=== PATIENT | female | born 1955 | race Caucasian/White ===

== ENCOUNTER → 2018-01-21 12:36 | Outpatient (CLI) | payer SELFPAY | PROVIDERS: PCP Family Medicine; Visit Provider Family Medicine | DX: R73.9 Hyperglycemia, unspecified (principal) | CPT/HCPCS: 36415; 80048; 80061; 83036; 84443 ==

== ENCOUNTER 2018-09-03 15:40 | Emergency (ER) | payer SELFPAY ==
[2018-09-03 16:00] VITALS: BP 124/67; PULSE 96; RESP 20; TEMP 36.6; O2SAT 96; BMI 42.0
--- NOTE | 2018-09-03 16:09 | HMH.EDUTC ---
[facility] – [place], [place] Disposition Clinical Impression: Sinusitis Qualifiers: Sinusitis location: unspecified location Chronicity: unspecified Qualified Code(s): J32.9 - Chronic sinusitis, unspecified Disposition: Home, Self-Care Condition on Discharge: Good Instructions: Sinusitis, Sinus Headache, DI for Sinusitis Additional Instructions: Start antibiotic. Sinus infections may take 2-3 days to notice much improvement so be sure to use conservative measures as discussed for symptoms Flonase 2 spray in each nostril daily to help with nasal congestion, sinus an ear pressure/inflammation Lots of Fluids Sleep elevated Humidifer/vaporizer Augmentin can cause GI effects. Probiotics may help to prevent these symptoms Follow up with family doctor if no improvement or any worsening of symptoms Straight to ER if any life threatening symptoms Prescriptions: Amoxicillin/Potassium Clav [Augmentin 875-125 Tablet] 1 tab PO Q12H 7 Days #14 tab Fluticasone Propionate [Flonase 50mcg nasal spray 16gm] 2 spr NS DAILY #1 bottle Benzonatate [Tessalon Perle 100mg Cap] 100 mg PO TID PRN #30 cap PRN Reason: Cough Referrals: Cecil Temple MD [Primary Care Provider] - As needed Time of Disposition: 16:16 Medical Decision Making - Ceasar Inquiry Pt receiving controlled substance: No Ceasar was queried for this patient: No Vital Signs: 09/03/18 16:00 Temperature 97.8 F Temperature Source Oral Pulse Rate [Right Brachial] 96 H Respiratory Rate 20 Blood Pressure [Right Arm] 124/67 Blood Pressure Mean [Right Arm] 86 Blood Pressure Source [Right Arm] Automatic Cuff Blood Pressure Position [Right Arm] Sitting 02 Sat by Pulse Oximetry 96 Oxygen Delivery Method Room Air [facility] – [place], [place] HPI - General Stated complaint: cough,ears Time Seen by Provider: 09/03/18 16:09 Mode of Arrival: Family Vehicle Source of Information: Patient Limitations: No Limitations Description of Symptoms (Recalled from Triage Doc. by RN): c/o cough x 2 weeks and hearing problems HEENT Symptoms (Recalled from RN notes): Yes Resp Symptoms (Recalled from RN notes): Yes Skin Symptoms (Recalled from RN notes): No MS Symptoms (Recalled from RN notes): No Functional Status (Recalled from RN notes): n/a - History of Present Illness Provider Complaint: Patient state that she has been having sinus pain and pressure for almost 2 weeks and drainage went from clear to yellowish green State that she has also been having pressure like feeling in her ears, sore throat and cough States that she feels like she is having some drainage in the back of her throat that is worse when she lays down - Related Data Home Medications Medication Instructions Recorded Confirmed Levothyroxine Sodium 200 mcg PO DAILY 09/03/18 09/03/18 [Levothyroxine 200mcg (0.2mg) Tab] Simvastatin 40 mg PO DAILY 09/03/18 09/03/18 Previous Rx's Medication Instructions Recorded Amoxicillin/Potassium Clav 1 tab PO Q12H 7 Days #14 tab 09/03/18 [Augmentin 875-125 Tablet] Benzonatate [Tessalon Perle 100mg 100 mg PO TID PRN #30 cap 09/03/18 Cap] Fluticasone Propionate [Flonase 2 spr NS DAILY #1 bottle 09/03/18 50mcg nasal spray 16gm] Allergies Allergy/AdvReac Type Severity Reaction Status Date / Time No Known Allergies Allergy Verified 09/03/18 16:04 - Worker's Comp Is this a Worker's Comp case?: No [facility] History - Hepatitis A Screen Drug use history?: No High risk sexual behaviors?: No History of sexually transmitted infection?: No Currently employed?: No Childcare worker?: No Do you have indoor plumbing?: Yes Do you have electricity?: Yes Attestation statement:: This patient has been screened for Hepatitis A risk factors. I have reviewed the patient's past medical history: Yes Medical History: Reports:: Anxiety, Depression, Diabetes Mellitus Type 2, Hyperlipidemia, Hypertension Laterality Cases: Bilateral: Tonsillectomy - Social History Alcohol Intake: never Occupational Status:
--- NOTE | 2018-09-03 16:12 | ED_ITS ---
[facility] [place] Impression: Sinusitis Qualifiers: Sinusitis location: unspecified location Chronicity: unspecified Qualified Code(s): J32.9 - Chronic sinusitis, unspecified Disposition: Home, Self-Care Condition on Discharge: Good Instructions: Sinusitis, Sinus Headache, DI for Sinusitis Additional Instructions: Start antibiotic. Sinus infections may take 2-3 days to notice much improvement so be sure to use conservative measures as discussed for symptoms Flonase 2 spray in each nostril daily to help with nasal congestion, sinus an ear pressure/inflammation Lots of Fluids Sleep elevated Humidifer/vaporizer Augmentin can cause GI effects. Probiotics may help to prevent these symptoms Follow up with family doctor if no improvement or any worsening of symptoms Straight to ER if any life threatening symptoms Prescriptions: Amoxicillin/Potassium Clav [Augmentin 875-125 Tablet] 1 tab PO Q12H 7 Days #14 tab Fluticasone Propionate [Flonase 50mcg nasal spray 16gm] 2 spr NS DAILY #1 bottle Benzonatate [Tessalon Perle 100mg Cap] 100 mg PO TID PRN #30 cap PRN Reason: Cough Referrals: Cecil Temple MD [Primary Care Provider] - As needed Time of Disposition: 16:16 Medical Decision Making - Ceasar Inquiry Pt receiving controlled substance: No Ceasar was queried for this patient: No Vital Signs: 09/03/18 16:00 Temperature 97.8 F Temperature Source Oral Pulse Rate [Right Brachial] 96 H Respiratory Rate 20 Blood Pressure [Right Arm] 124/67 Blood Pressure Mean [Right Arm] 86 Blood Pressure Source [Right Arm] Automatic Cuff Blood Pressure Position [Right Arm] Sitting 02 Sat by Pulse Oximetry 96 Oxygen Delivery Method Room Air [facility] [place] - General Stated complaint: cough,ears Time Seen by Provider: 09/03/18 16:09 Mode of Arrival: Family Vehicle Source of Information: Patient Limitations: No Limitations Description of Symptoms (Recalled from Triage Doc. by RN): c/o cough x 2 weeks and hearing problems HEENT Symptoms (Recalled from RN notes): Yes Resp Symptoms (Recalled from RN notes): Yes Skin Symptoms (Recalled from RN notes): No MS Symptoms (Recalled from RN notes): No Functional Status (Recalled from RN notes): n/a - History of Present Illness Provider Complaint: Patient state that she has been having sinus pain and pressure for almost 2 weeks and drainage went from clear to yellowish green State that she has also been having pressure like feeling in her ears, sore throat and cough States that she feels like she is having some drainage in the back of her throat that is worse when she lays down - Related Data Home Medications Medication Instructions Recorded Confirmed Levothyroxine Sodium 200 mcg PO DAILY 09/03/18 09/03/18 [Levothyroxine 200mcg (0.2mg) Tab] Simvastatin 40 mg PO DAILY 09/03/18 09/03/18 Previous Rx's Medication Instructions Recorded Amoxicillin/Potassium Clav 1 tab PO Q12H 7 Days #14 tab 09/03/18 [Augmentin 875-125 Tablet] Benzonatate [Tessalon Perle 100mg 100 mg PO TID PRN #30 cap 09/03/18 Cap] Fluticasone Propionate [Flonase 2 spr NS DAILY #1 bottle 09/03/18 50mcg nasal spray 16gm] Allergies Allergy/AdvReac Type Severity Reaction St
[2018-09-03 16:17] VITALS: BP 124/67; PULSE 96; RESP 20; TEMP 36.6; O2SAT 96
== END 2018-09-03 16:19 | disposition home or self-care (01) ==
PROVIDERS: Emergency Provider Nurse Practitioner; PCP Family Medicine
DX: J32.9 Chronic sinusitis, unspecified (principal)
CPT/HCPCS: 96372; 99201

== ENCOUNTER → 2019-07-25 09:08 | Outpatient (CLI) | payer SELFPAY ==
--- NOTE | 2019-07-25 | CA_ITS ---
APPROVED REPORT Exam: Exercise Treadmill Technologist: Ghada Valle, Ht: 5 ft 2 in Wt: 224 lbs BSA: 2.01 m2 HR: 73 bpm BP: 114/55 mmHg Rhythm: NSR Indications: Chest pain Medical History Medical History: Fatigue, Hyperlipidemia, HTN Medications: Lisinopril,Lasix,Famotidine,Buspiprone,Fluoxetine Allergies: No known drug allergies Cardiac Risk Factors: HTN, FHX of CAD Pretest Chest Pain Characteristics: Typical angina Stress Test Details Test: [place] HR Resting HR: 79 bpm Max Heart Rate (APMHR): 158 bpm Max HR Achieved: 141 bpm Target HR (85% APMHR): 134 bpm % of APMHR: 89 Recovery HR: 89 bpm BP Resting BP: 114/55 mmHg Max BP: 205/70 mmHg Recovery BP: 112.0/42.0 mmHg ECG Resting EC Stress EC Recovery EC Clinical Reason for Termination: Target HR Achieved Stress Symptoms: Chest pain Exercise duration: 04:56 min Highest Stage Achieved: Exercise capacity: 7.0 METs Stress ECG Conclusion Max HR - 141:%of PM - 89%;Max B/P - 205/70; METS - 7.0: test stopped due to SOA and Fatigue. Symptoms - Sharp chest pain during exercise. Arrhythmias - rare PAC ST-T changes - 1mm horizontal and slight upsloping ST depression inferiorly and laterally. Conclusion - Borderline positive ECG changes for ischemia and Chest Pain with exercise - GXT only - no imaging. Test Summary REST . . . . . . . Resting REST . . . . . . . Standing REST 06:44 0.0 0.0 79 . 114/ 55 . . Stage 1 01:00 10.0 1.7 94 . . . . Stage 1 02:00 10.0 1.7 109 . . . . Stage 1 03:00 10.0 1.7 120 . 164/ 64 . . Stage 2 . . . . . . . Chest pain Stage 2 01:00 12.0 2.5 132 . . . . Stage 2 01:56 12.0 2.5 140 . . . Stop exercise at 04:56 RECOVERY 01:00 0.0 0.0 130 . 205/ 70 . . RECOVERY 02:00 0.0 0.0 115 . 205/ 70 . . RECOVERY 03:00 0.0 0.0 102 . 205/ 70 . . RECOVERY 04:00 0.0 0.0 96 . 175/ 53 . . RECOVERY 05:00 0.0 0.0 93 . 145/ 49 . . RECOVERY 06:00 0.0 0.0 90 . 145/ 49 . . RECOVERY 07:00 0.0 0.0 89 . 145/ 49 . . RECOVERY 07:34 0.0 0.0 89 . 145/ 49 . . Electronically signed by : Chito Hebert, 07/27/2019 07:40:40
== END ==
PROVIDERS: PCP Family Medicine; Visit Provider Family Medicine
DX: R07.9 Chest pain, unspecified (principal)
CPT/HCPCS: 93017

== ENCOUNTER → 2019-11-10 11:50 | Outpatient (CLI) | payer MEDICAID, SELFPAY ==
--- NOTE | 2019-11-10 | CA_ITS ---
APPROVED REPORT Exam: Pharmacologic Technologist: Amira Akers, Ht: 5 ft 1 in Wt: 216 lbs BSA: 1.95 m2 HR: 54 bpm BP: 134/52 mmHg Rhythm: SINUS BRADYCARDIA Medical History Medical History: HTN, Hyperlipidemia, Diabetic ??? Noninsulin Medications: Metoprolol,,,,, Naproxen,,,,, Fluoxetine,,,,, SimvastaIN,,,,, PEPcid,,,,, BusproNE,,,,, Cardiac Risk Factors: HTN, Hyperlipidemia, Diabetes (non-insulin), FHX of CAD Stress Test Details Test: LEXISCAN HR Resting HR: 55 bpm Max Heart Rate (APMHR): 158 bpm Max HR Achieved: 82 bpm Target HR (85% APMHR): 134 bpm % of APMHR: 51 Recovery HR: 68 bpm BP Resting BP: 134.0/52.0 mmHg Max BP: 167.0/60.0 mmHg Recovery BP: 167.0/60.0 mmHg ECG Resting ECG: SINUS BRADYCARDIA Clinical Exercise duration: 04:01 min Highest Stage Achieved: Exercise capacity: 1.0 METs Stress ECG Conclusion LEXISCAN PORTION COMPLETED. PT C/O NAUSEA/VOMITING DURING PEAK INFUSION. NO CHEST PAIN OR SOA. NAUSEA AND VOMITING DURING PEAK INFUSION. OCCASIONAL PAC. LESS THAN 1.5MM ST DEPRESSION. IMAGES TO FOLLOW Test Summary REST . . . . . . . Sitting REST 01:39 . . 55 . 134/ 52 . . Stage 1 . . . . . . . Myoview Injected Stage 1 01:00 . . 80 . . . . Stage 2 01:00 . . 79 . 120/ 51 . . Stage 3 01:00 . . 76 . 140/ 66 . . Stage 4 01:00 . . 76 . 144/ 62 . . Stage 4 01:01 . . 76 . 144/ 62 . Stop exercise at 04:01 RECOVERY 01:00 . . 78 . . . . RECOVERY 02:00 . . 70 . . . . RECOVERY 03:00 . . 67 . 167/ 60 . . RECOVERY 04:00 . . 66 . 140/ 96 . . RECOVERY 05:00 . . 70 . 148/ 74 . . RECOVERY 05:09 . . 68 . 148/ 74 . . Electronically signed by : Miki Quigley, 11/20/2019 20:01:25
--- NOTE | 2019-11-10 11:50 | NM_ITS ---
APPROVED REPORT Exam: Nuclear Stress Test Indication: Chest pain, SOB, Abnormal EKG, Fatigue, HTN, DM, High cholesterol, Family history Patient Location: Outpatient Stress Tech: Nola Akers CT Tech:Angela Dodson, ARRT, RT (R)(N) Ht: 5 ft 1 in Wt: 216 lbs Bra Size: D HR: 54 bpm BP: 134/52 mmHg BSA: 1.95 m2 BMI: 40.8 History: Chest pain, SOB, Abnormal EKG, Fatigue, HTN, DM, High cholesterol, Family history Procedure: Patient received a 0.4 mg of intravenous Lexiscan, resting heart rate 54 bpm, resting blood pressure 134/52 mmHg, with Lexiscan maximum heart rate achived was 79 bpm which is 85 % of the maximum predicted heart rate and blood pressure was 120/51 mmHg. With Lexiscan, patient denied any complaint of chest pain. Cardiac Stress and Resting SPECT Images: Cardiac Stress and Resting SPECT images were obtained using technetium 99m Myoview 32.9 mCi stress and 10.53 mCi at rest. Ejection fraction is normal at 57% There is reversible defect within the inferior wall consistent with an area of ischemia. Small fixed defect within the apex laterally with a small area of reversibility in the lateral wall inferiorly. Conclusion: Abnormal exam suggesting ischemic changes with normal ejection fraction Electronically signed by : Spencer Munoz MD 11/13/2019 17:42:17
--- NOTE | 2019-11-10 12:56 | HMH.ITSHM ---
Current Home Medications as stated by this patient Ghada [place] or public relations representative. []ENTHYROX FLUOXETINE SIMVASTATIN NAPROXEN PEPCID BUSPIRONE METOPROLOL
== END ==
PROVIDERS: PCP Family Medicine; Visit Provider Urology
DX: I20.9 Angina pectoris, unspecified (principal); R06.00 Dyspnea, unspecified
CPT/HCPCS: 78452; 93017; 93306; A9502; J2785

== ENCOUNTER 2019-11-23 09:11 | Day surgery (SDC) | payer MEDICAID, SELFPAY ==
[2019-11-23] VITALS (12 sets, daily range): BP systolic 117–138; BP diastolic 48–68; PULSE 53–61; RESP 16–20; TEMP 36.8; O2SAT 94–98; BMI 40.0
[2019-11-23 09:42] LABS: Basophils # 0.1 K/mm3 (0-0.2); Basophils % 1.1 % (0.1-2.0); Eosinophils % 0.3 % (0.1-12.0); Hemoglobin 13.7 g/dL (12.2-16.2); Lymphocytes # 1.6 K/mm3 (0.7-4.5); Lymphocytes % 30.2 % (10-50); Mean Corpuscular HGB Conc 33.4 g/dL (31.8-35.4); Mean Corpuscular Hemoglobin 29.2 pg (27.0-31.2); Mean Corpuscular Volume 87.3 fl (81-99); Mean Platelet Volume 7.3 fl (7.4-10.4); Monocytes # 0.5 K/mm3 (0.1-1.0); Monocytes % 8.6 % (1.7-9.3); Neutrophils # 3.2 K/mm3 (1.8-7.8); Neutrophils % 59.8 % (37.0-80.0); Platelet Count 256 K/mm3 (142-424); Red Cell Distribution Width 12.7 % (11.5-17.5); White Blood Count 5.4 K/mm3 (4.8-10.8)
[2019-11-23 09:48] LABS: Chloride 105 mmol/L (98-107); Sodium 140 mmol/L (136-145)
[2019-11-23 09:49] LABS: Potassium 4.3 mmoL/L (3.5-5.1)
[2019-11-23 09:52] LABS: Anion Gap 8.3 mEq/L (5-15); Blood Urea Nitrogen 17 mg/dl (7-17); Calcium 9.5 mg/dl (8.4-10.2); Carbon Dioxide 31 mmol/L (22.0-30.0); Creatinine Clearance Estimated 91 mL/min (50-200); Estimated Glomerular Filt Rate 101 ml/min (>60); GFR (African American) 123 ML/MIN (>60); Glucose 106 mg/dl (74-100)
--- NOTE | 2019-11-23 10:45 | IR_ITS ---
APPROVED REPORT Patient Location: Outpatient Director Of Securities And Real Estate: GEOFFREY Dela Cruz RT (R) PROCEDURES Left heart catheterization Left ventriculogram Selective coronary angiogram INDICATION High risk abnormal Myoview, Angina pectoris Informed consent was obtained prior to the procedure. COMPLICATIONS None Estimated Blood Loss: less than 10ml TECHNIQUE One percent lidocaine used to anesthetize the right anterior aspect of the wrist. The right radial artery was accessed via the Seldinger technique. A 6 Gambian sheath was placed in the right radial artery. 2.5 mg of verapamil, 800 mcg of nitroglycerin, 1mg Lidocaine and 5000 U Heparin were given through the arterial sheath. An advantage wire was used to traverse the tortuosity in the radial and brachial artery. A 6 Gambian Papa catheter was used to perform left heart catheterization left ventriculogram and selective coronary angiogram. A 4 Gambian JL 3.5 catheter was readvanced to look at the left main artery better however there was difficulty in cannulating it and with repeat angiography and reviewing the films again it was very clear that distal left main stenosis was severe therefore further images were aborted and the apparatus was removed and the patient was transferred to the postop holding her stable condition. There was severe dampening of the left main pressure upon engagement with 6 Gambian catheter ANGIOGRAPHIC RESULTS The left main artery Has distal greater than 50% stenosis The left anterior descending artery Ramus intermedius originates from the left main artery and has an ostial 90% stenosis The circumflex artery Is a nondominant yet still large vessel with proximal tubular 30 to 40% stenosis The right coronary artery Is a dominant vessel and has an ostial greater than 50% stenosis followed by a proximal concentric 70 to 80% stenosis followed by mid vessel long 60 to 70% stenosis. A large posterior descending artery has an ostial 80 to 90% stenosis The URIBE ventriculogram reveals Normal 65% The left ventricular end-diastolic pressure 10 mmHg IMPRESSION Severe three-vessel coronary artery disease as described above most notably with severe distal left main disease Normal ejection fraction Normal left ventricular end-diastolic pressure PLAN 1. Patient will be referred to [facility] for surgical revascularization 2. LDL less than 55 to be achieved with high intensity statin 3. Daily aspirin 81 mg Electronically signed by : Christo Layne, 11/23/2019 10:55:13
== END 2019-11-23 14:00 | disposition home or self-care (01) ==
LOC: CATHLAB 09:13
PROVIDERS: PCP Family Medicine; Visit Provider Internal Medicine
DX: I25.118 Atherosclerotic heart disease of native coronary artery with other forms of angina pectoris (principal); E78.5 Hyperlipidemia, unspecified; I10 Essential (primary) hypertension; K21.9 Gastro-esophageal reflux disease without esophagitis; R06.00 Dyspnea, unspecified; R94.39 Abnormal result of other cardiovascular function study; Z82.49 Family history of ischemic heart disease and other diseases of the circulatory system
CPT/HCPCS: 80048; 85025; 93458; 99152; 99153; C1725; C1769; J1644; Q9967

== ENCOUNTER 2020-02-21 17:12 | Emergency (ER) | payer MEDICAID, SELFPAY ==
--- NOTE | 2020-02-21 17:05 | ECG_ITS ---
APPROVED REPORT Exam: Resting ECG HR:64 bpm ECG Measurements Heart Rate 64 AXES HI 150 P 48 QRSd 94 QRS 7 QT 440 T 57 QTc 453 Conclusion Normal sinus rhythm Left atrial abnormality Borderline ECG Electronically signed by : Chito Hebetr, 02/23/2020 13:51:30
[2020-02-21 17:15] VITALS: BP 121/49; PULSE 63; RESP 15; TEMP 36.5; O2SAT 95; BMI 37.6
--- NOTE | 2020-02-21 17:21 | HMH.EDGENADL ---
ED Disposition Clinical Impression: Chest wall pain following surgery Disposition: Home, Self-Care Condition on Discharge: Good Instructions: DI for Atypical Chest Pain Additional Instructions: Tylenol for pain. Follow-up in the office tomorrow with Dr. Layne. Additional instructions for CHEST PAIN: Return immediately if worsening chest pain, vomiting, shortness of breath, fever, coughing of blood. Referrals: PCP,No [Primary Care Provider] - - Critical Care Critical Care Time: No Attestation: On , the high probability of a clinically significant, sudden or life threatening deterioration of the following system(s) required my full and direct attention, intervention and personal management. The time I documented below is in addition to time spent performing reported procedures but includes the following listed in this critical care notation. Medical Decision Making - Ceasar Inquiry Pt receiving controlled substance: No Vital Signs: 02/21/20 17:15 Temperature 97.7 F Temperature Source Oral Pulse Rate [Left Radial] 63 Respiratory Rate 15 Blood Pressure [Right Arm] 121/49 L Blood Pressure Mean [Right Arm] 73 Blood Pressure Source [Right Arm] Automatic Cuff Blood Pressure Position [Right Arm] Sitting 02 Sat by Pulse Oximetry 95 Oxygen Delivery Method Room Air - Lab Data Lab Results 02/21/20 17:20: WBC 8.4, RBC 4.91, Hgb 12.9, Hct 42.3, MCV 86.1, MCH 26.2 L, MCHC 30.5 L, RDW 14.4, Plt Count 311, MPV 7.2 L, Neut % (Auto) 65.2, Lymph % (Auto) 26.1, [place] % (Auto) 7.8, Eos % (Auto) 0.1, Baso % (Auto) 0.7, Neut # (Auto) 5.5, Lymph # (Auto) 2.2, [place] # (Auto) 0.7, Eos # (Auto) 0.0, Baso # (Auto) 0.1 02/21/20 17:20: Sodium 139, Potassium 4.3, Chloride 99, Carbon Dioxide 34 H, Anion Gap 10.3, BUN 19 H, Creatinine 0.80, Estimated Creat Clear 85, Estimated GFR 72, Est GFR ( Amer) 88, Glucose 100, Calcium 9.8, Troponin I < 0.01 Result diagrams: 02/21/20 17:20 02/21/20 17:20 Orders (Tests/Meds): ORDERS Category Date Time Status Chest XR 2 view (NOT portable) [XR chest 2V] Stat Exams 02/21/20 17:22 Taken Troponin I Q3H Lab 02/21/20 20:30 Ordered Troponin I Q3H Lab 02/21/20 23:30 Ordered - Radiology Data #1 Image(s): Chest Image Reviewed: Yes I reviewed the patient's radiology image Sternotomy. Atelectasis versus scar lingular area. - ECG Data Tracing #1 EKG interpreted by Elías Hutchinson MD: Rhythm: sinus Rate: 64 [place]: Left Ectopy: none Conduction: normal ST Segment Changes: none T Wave Changes: none Q Waves: none No evidence of acute ischemia or injury Medical Decision Narrative: Prior left heart cath results: PROCEDURES Left heart catheterization Left ventriculogram Selective coronary angiogram INDICATION High risk abnormal Myoview, Angina pectoris Informed consent was obtained prior to the procedure. COMPLICATIONS None Estimated Blood Loss: less than 10ml TECHNIQUE One percent lidocaine used to anesthetize the right anterior aspect of the wrist. The right radial artery was accessed via the Seldinger technique. A 6 [place]ralt[place] sheath was placed in the right radial artery. 2.5 mg of verapamil, 800 mcg of nitroglycerin, 1mg Lidocaine and 5000 U Heparin were given through the arterial sheath. An advantage wire was used to traverse the tortuosity in the radial and brachial artery. A 6 [place] Papa catheter was used to perform left heart catheterization left ventriculogram and selective coronary angiogram. A 4 [place]ralt[place] JL 3.5 catheter was readvanced to look at the left main artery better however there was difficulty in cannulating it and with repeat angiography and reviewing the films again it was very clear that distal left main stenosis was severe therefore further images were aborted and the apparatus was removed and the patient was transferred to the postop holding her stable condition. There was severe dampening of
--- NOTE | 2020-02-21 17:22 | XR_ITS ---
PROCEDURE: XR CHEST 2V CLINICAL HISTORY: Chest Pain COMPARISON: CR CXR CHEST(2 VIEWS-NOT PORTABLE) from 05/25/2013 FINDINGS: Interval median sternotomy. Normal heart size. Atelectatic or fibrotic changes are present in the left lower lobe. No acute bony abnormalities. IMPRESSION: Atelectatic or fibrotic change in the left lower lobe otherwise negative Dictated by: Spencer Munoz MD 02/22/2020 06:10 Spencer Munoz MD in OV 02/22/2020 06:10
[2020-02-21 17:29] LABS: Basophils # 0.1 K/mm3 (0-0.2); Basophils % 0.7 % (0.1-2.0); Eosinophils % 0.1 % (0.1-12.0); Hematocrit 42.3 % (37.0-47.0); Hemoglobin 12.9 g/dL (12.2-16.2); Lymphocytes # 2.2 K/mm3 (0.7-4.5); Lymphocytes % 26.1 % (10-50); Mean Corpuscular HGB Conc 30.5 g/dL (31.8-35.4); Mean Corpuscular Hemoglobin 26.2 pg (27.0-31.2); Mean Corpuscular Volume 86.1 fl (81-99); Mean Platelet Volume 7.2 fl (7.4-10.4); Monocytes # 0.7 K/mm3 (0.1-1.0); Monocytes % 7.8 % (1.7-9.3); Neutrophils # 5.5 K/mm3 (1.8-7.8); Neutrophils % 65.2 % (37.0-80.0); Platelet Count 311 K/mm3 (142-424); Red Blood Count 4.91 M/mm3 (4.20-5.40); Red Cell Distribution Width 14.4 % (11.5-17.5); White Blood Count 8.4 K/mm3 (4.8-10.8)
[2020-02-21 17:30] LABS: Chloride 99 mmol/L (98-107); Sodium 139 mmol/L (136-145)
[2020-02-21 17:31] LABS: Potassium 4.3 mmoL/L (3.5-5.1)
[2020-02-21 17:33] LABS: Blood Urea Nitrogen 19 mg/dl (7-17); Creatinine Clearance Estimated 85 mL/min (50-200); Estimated Glomerular Filt Rate 72 ml/min (>60); GFR (African American) 88 ML/MIN (>60)
[2020-02-21 17:34] LABS: Anion Gap 10.3 mEq/L (5-15); Calcium 9.8 mg/dl (8.4-10.2); Carbon Dioxide 34 mmol/L (22.0-30.0); Glucose 100 mg/dl (74-100)
--- NOTE | 2020-02-21 17:39 | PC.NURSE ---
Pt to rad.
[2020-02-21 17:47] LABS: Troponin I < 0.01 ng/ml (0.00-0.034)
[2020-02-21 18:47] VITALS: BP 120/58; PULSE 61; RESP 13; TEMP 36.5; O2SAT 96
== END 2020-02-21 18:48 | disposition home or self-care (01) ==
PROVIDERS: Emergency Provider Emergency Medicine; PCP Family Medicine
DX: R78.9 Finding of unspecified substance, not normally found in blood (principal); Z95.1 Presence of aortocoronary bypass graft; F41.8 Other specified anxiety disorders; E11.9 Type 2 diabetes mellitus without complications; K21.9 Gastro-esophageal reflux disease without esophagitis; E78.5 Hyperlipidemia, unspecified; I10 Essential (primary) hypertension; E03.9 Hypothyroidism, unspecified; Z79.899 Other long term (current) drug therapy
CPT/HCPCS: 71046; 80048; 84484; 85025; 93005; 99282

== ENCOUNTER 2020-02-22 12:58 | Outpatient (RCR) | payer MEDICAID, SELFPAY | END 2020-05-07 15:21 | disposition home or self-care (01) | LOC: PT 12:58 | PROVIDERS: Visit Provider Thoracic Surgery (Cardiothoracic Vascular Surgery) | DX: Z95.1 Presence of aortocoronary bypass graft (principal) ==

== ENCOUNTER → 2020-02-27 11:24 | Outpatient (CLI) | payer MEDICAID, SELFPAY | PROVIDERS: Visit Provider Nurse Practitioner Family | DX: Z03.818 Encounter for observation for suspected exposure to other biological agents ruled out (principal) | CPT/HCPCS: 36415; U0003 ==

== ENCOUNTER → 2020-11-06 13:34 | Outpatient (CLI) | payer OTHER, SELFPAY ==
--- NOTE | 2020-11-06 | CA_ITS ---
APPROVED REPORT EXAM: Comprehensive 2D, Doppler, and color-flow Echocardiogram Refrigerator Room Clerk: Fay Kruger, LEA, RVS Ht: 5 ft 2 in Wt: 236lbs BSA: 2.05 BP: 143/98 mmHg Indications: CAD, CABG X4,SOB,HTN, JLD, EDEMA 2D Dimensions Left Atrium 4.37 cm LA Volume 50.30 mL LVOT 1.89 cm (M/F) 1.5-2.5 LA Volume Index 24.50 mL/m2 (M/F) 16-34 M-Mode Dimensions RVDd 3.72 cm (0.9-2.6) LA Diam 3.87 cm (1.9-4.0) LVDd 4.94 cm (3.5-5.7) Ao Diam 3.01 cm (2.0-3.7) LVDs 3.08 cm (3.5-5.7) IVSd 0.82 cm (0.6-1.1) PWd 0.79 cm (0.6-1.1) EF (Teich) 67.60% EPSs 0.65 cm FS 37.70% EDV (Teich) 115.00 mL TAPSE 0.89 (<1.7) ESV (Teich) 37.30 mL LV Diastology E Decel Time 277.00 (160-240 msec) E/A Ratio 0.91 MED E' 6.00 (< 7 cm/sec) MED A' 6.60 cm/s E'/MED E' Ratio 10.05 (>14) LAT E' 14.00 (<10 cm/sec) LAT A' 7.10 cm/s E/LAT E' Ratio 4.31 (>14) Aortic Valve LVOT Max 110.00 (70-110 cm/s) LVOT VTI 23.00 cm AoV Peak Alex. 125.00 (50-130 cm/s) AI PHT 439.00 ms AO Peak GR. 6.20 mmHg AO Mean GR. 3.10 (<5 mmHg) AO VTI 25.68 (18-25 cm) DANIELA (VTI) 2.51 (2.5-4.5 cm2) Mitral Valve MV A Velocity 66.00 (40-130 cm/s) E/A Ratio 0.91 MV Decel. Time 277.00 (160-240 ms) Pulmonary Valve PV Peak Velocity 87.00 (50-150 cm/s) Tricuspid Valve TR P. Velocity 170.00 cm/s Left Ventricle Left atrium is mildly enlarged, left ventricle is normal size, mild concentric left ventricular hypertrophy, visually estimated ejection fraction 50% with no regional wall motion abnormality, grade 1 diastolic dysfunction seen without tissue Doppler evidence of raise left atrial pressure. Right Ventricle Right atrium and right ventricle mildly enlarged with normal contractility. Aortic Valve Aortic valve is minimally thickened and fibrosed, there is no aortic stenosis or aortic insufficiency. Mitral Valve Mitral valve leaflets are minimally thickened, there is mild mitral regurgitation. Tricuspid Valve Tricuspid grossly normal, there is mild tricuspid regurgitation, tricuspid regurgitation jet velocity is inadequate for calculation of the right ventricular systolic pressure. Pulmonic Valve Pulmonic valve is poorly visualized. Great Vessels Aortic root is normal size. Pericardium No significant pericardial effusion noted. Conclusion 1. Mild biatrial abdomen, normal left ventricular size, mild concentric left ventricular hypertrophy, visually estimated ejection fraction 50% with no regional wall motion abnormality, grade 1 diastolic dysfunction seen without tissue Doppler evidence of raise left atrial pressure. 2. Mildly enlarged right ventricle with normal contractility. 3. Mild mitral and tricuspid regurgitation. 4. No significant pericardial effusion noted. Electronically signed by : Miki Quigley, 11/07/2020 16:01:34
== END ==
PROVIDERS: PCP Family Medicine; Visit Provider Nurse Practitioner Family
DX: R06.00 Dyspnea, unspecified (principal); I20.8 Other forms of angina pectoris
CPT/HCPCS: 93306

== ENCOUNTER → 2020-11-12 08:52 | Outpatient (CLI) | payer OTHER, SELFPAY ==
[2020-11-12 10:25] LABS: Chloride 101 mmol/L (98-107); Potassium 4.7 mmoL/L (3.5-5.1); Sodium 141 mmol/L (136-145)
[2020-11-12 10:27] LABS: Blood Urea Nitrogen 18 mg/dl (7-17); Estimated Glomerular Filt Rate 85 ml/min (>60); GFR (African American) 102 ML/MIN (>60)
[2020-11-12 10:28] LABS: Alanine Aminotransferase 19 U/L (12-78); Albumin Level 4.6 g/dl (3.5-5.0); Albumin/Globulin Ratio 1.4 (1.1-1.8); Alkaline Phosphatase 89 U/L (38-126); Anion Gap 13.7 mEq/L (5-15); Aspartate Amino Transferase 31 U/L (14-36); Calcium 9.5 mg/dl (8.4-10.2); Carbon Dioxide 31 mmol/L (22.0-30.0); Cholesterol 181 mg/dl (140-200); Globulin 3.2 g/dL (1.3-3.2); Glucose 113 mg/dl (74-100); Total Protein,Serum 7.8 g/dl (6.3-8.2); Triglycerides 206 mg/dl (30-150); VLDL Cholesterol 41 mg/dL (0-40)
[2020-11-12 10:29] LABS: Chol/HDL Ratio 3.8 (1-3.5); HDL Cholesterol 48 mg/dl (40-60)
[2020-11-12 10:40] LABS: Direct LDL Cholesterol 95.33 mg/dL (100-129)
== END ==
PROVIDERS: Family Medicine; Visit Provider Nurse Practitioner Family
DX: I10 Essential (primary) hypertension (principal); E78.5 Hyperlipidemia, unspecified; I25.10 Atherosclerotic heart disease of native coronary artery without angina pectoris; Z79.899 Other long term (current) drug therapy
CPT/HCPCS: 36415; 80053; 80061; 84443

== ENCOUNTER → 2020-11-20 07:41 | Outpatient (CLI) | payer SELFPAY ==
[2020-11-20 08:27] LABS: Anion Gap 13.1 mEq/L (5-15); Blood Urea Nitrogen 22 mg/dl (7-17); Calcium 9.7 mg/dl (8.4-10.2); Carbon Dioxide 34 mmol/L (22.0-30.0); Chloride 99 mmol/L (98-107); Estimated Glomerular Filt Rate 56 ml/min (>60); GFR (African American) 68 ML/MIN (>60); Glucose 115 mg/dl (74-100); Potassium 5.1 mmoL/L (3.5-5.1); Sodium 141 mmol/L (136-145)
== END ==
PROVIDERS: Nurse Practitioner Family; Visit Provider Internal Medicine
DX: E78.2 Mixed hyperlipidemia (principal); I10 Essential (primary) hypertension; I25.118 Atherosclerotic heart disease of native coronary artery with other forms of angina pectoris; K21.9 Gastro-esophageal reflux disease without esophagitis; R06.00 Dyspnea, unspecified; R07.9 Chest pain, unspecified; Z95.1 Presence of aortocoronary bypass graft
CPT/HCPCS: 36415; 80048

== ENCOUNTER → 2020-12-03 12:41 | Outpatient (CLI) | payer SELFPAY ==
[2020-12-03 13:31] LABS: Chloride 100 mmol/L (98-107); Potassium 4.2 mmoL/L (3.5-5.1); Sodium 142 mmol/L (136-145)
[2020-12-03 13:34] LABS: Blood Urea Nitrogen 22 mg/dl (7-17); Estimated Glomerular Filt Rate 56 ml/min (>60); GFR (African American) 68 ML/MIN (>60)
[2020-12-03 13:35] LABS: Anion Gap 12.2 mEq/L (5-15); Calcium 9.8 mg/dl (8.4-10.2); Carbon Dioxide 34 mmol/L (22.0-30.0); Glucose 106 mg/dl (74-100)
== END ==
LOC: LAB 12:43
PROVIDERS: Visit Provider Nurse Practitioner Family
DX: R06.00 Dyspnea, unspecified (principal); R07.9 Chest pain, unspecified; E78.2 Mixed hyperlipidemia; I10 Essential (primary) hypertension; I25.118 Atherosclerotic heart disease of native coronary artery with other forms of angina pectoris; K21.9 Gastro-esophageal reflux disease without esophagitis
CPT/HCPCS: 80048

== ENCOUNTER 2021-08-16 19:14 | Emergency (ER) | payer SELFPAY ==
[2021-08-16 19:15] VITALS: BP 173/76; PULSE 73; RESP 18; TEMP 36.9; O2SAT 97; BMI 40.4
--- NOTE | 2021-08-16 19:25 | HMH.EDCP ---
ED Disposition <Lionel Croninreet - Last Filed: 08/16/21 19:25> Condition on Discharge: Good - Critical Care Critical Care Time: No <PrernaIlya Hou - Last Filed: 08/16/21 23:56> Clinical Impression: Atypical chest pain Shingles Qualifiers: Herpes zoster complications: without complications Qualified Code(s): B02.9 - Zoster without complications Disposition: Home, Self-Care Instructions: DI for Shingles Additional Instructions: use meds and see pcp for follow up Prescriptions: Acyclovir 400 mg PO QID #28 tab Transmission Status: Pending to [facility] predniSONE [Prednisone 20mg Tab] 20 mg PO BID #10 tab Transmission Status: Pending to [facility] Referrals: Provider,Referral, [Referring] - Attestation: On 08/16/21, the high probability of a clinically significant, sudden or life threatening deterioration of the following system(s) required my full and direct attention, intervention and personal management. The time I documented below is in addition to time spent performing reported procedures but includes the following listed in this critical care notation. Medical Decision Making - Medical Records Medical records reviewed: Yes: I reviewed the patient's medical records. - Ceasar Inquiry Pt receiving controlled substance: No Ceasar was queried for this patient: No - Lab Data Lab results reviewed: Yes: I reviewed the patient's lab results. <Jose Cronin - Last Filed: 08/16/21 19:25> - Lab Data Result diagrams: 08/16/21 19:25 08/16/21 19:25 - Radiology Data #1 Image(s): Chest Image Reviewed: Yes I have reviewed radiologist's interpretation Preliminary Findings: Normal/NAD - CT Data CT Scan: Abdomen, Pelvis Time Received: 23:[address] Reviewed: Yes: I have viewed the radiologist's interpretation Preliminary Findings: Abnormal (nonspecific ) - ECG Data Tracing #1 Normal Sinus Rhythm: Yes Ischemic changes: non-specific ST-T wave changes <PrernaIlya castillo - Last Filed: 08/16/21 23:56> Vital Signs: 08/16/21 19:15 Temperature 98.5 F Temperature Source Oral Pulse Rate [Right] 73 Respiratory Rate 18 Blood Pressure [Right Arm] 173/76 H Blood Pressure Mean [Right Arm] 108 Blood Pressure Source [Right Arm] Automatic Cuff 02 Sat by Pulse Oximetry 97 Oxygen Delivery Method Room Air - Lab Data Lab Results 08/16/21 19:25: WBC 8.0, RBC 5.19, Hgb 15.0, Hct 46.9, MCV 90.4, MCH 28.9, MCHC 31.9, RDW 13.5, Plt Count 314, MPV 7.8, Neut % (Auto) 71.8, Lymph % (Auto) 20.4, [place] % (Auto) 6.1, Eos % (Auto) 0.1, Baso % (Auto) 1.6, Neut # (Auto) 5.8, Lymph # (Auto) 1.6, [place] # (Auto) 0.5, Eos # (Auto) 0.0, Baso # (Auto) 0.1 08/16/21 19:25: PT 11.2, INR 0.99, APTT 26.8 08/16/21 19:25: Sodium 139, Potassium 4.2, Chloride 103, Carbon Dioxide 29, Anion Gap 11.2, BUN 12, Creatinine 0.70, Estimated Creat Clear 90, Estimated GFR 84, Est GFR ( Amer) 102, Glucose 113 H, Calcium 8.9, Total Bilirubin 0.9, AST 26, ALT 21, Alkaline Phosphatase 97, Troponin I < 0.01, Total Protein 7.5, Albumin 4.3, Globulin 3.2, Albumin/Globulin Ratio 1.3 08/16/21 19:25: NT-Pro-B Natriuret Pep 354 H 08/16/21 19:25: ESR 12 08/16/21 19:25: Procalcitonin < 0.030 08/16/21 19:25: C-Reactive Protein 1.0 08/16/21 19:25: Lipase 154 08/16/21 22:30: Troponin I < 0.01 Orders (Tests/Meds): ED MEDICATIONS Generic Name Dose Route Start Last Admin Trade Name Freq PRN Reason Stop Dose Admin Sodium Chloride 8 ml 08/16/21 21:30 Sodium Chloride 0.9% 10ml Vial IV 09/15/21 21:29 NEEDED PRN dilute pepcid Discontinued Medications Generic Name Dose Route Start Last Admin Trade Name Freq PRN Reason Stop Dose Admin Aspirin 324 mg 08/16/21 20:36 08/16/21 21:03 Aspirin 81mg Chewable Tablet PO 08/16/21 20:37 324 mg ONCE ONE Administration Famotidine 20 mg 08/16/21 21:30 08/16/21 21:31 Famotidine 20mg/2ml Vial IV 08/16/21 21:31 20 mg ONCE ONE Administr
--- NOTE | 2021-08-16 19:27 | XR_ITS ---
PROCEDURE INFORMATION: Exam: XR Chest Exam date and time: 08/16/2021 7:32 PM Age: 66 years old Clinical indication: Pain; Chest pressure; Additional info: Chest pain TECHNIQUE: Imaging protocol: XR of the chest. Views: 1 view. COMPARISON: CR XR CHEST 2V 02/21/2020 5:35 PM FINDINGS: Lungs: Unremarkable. No consolidation. Pleural spaces: Unremarkable. No pleural effusion. No pneumothorax. Heart/Mediastinum: Postsurgical changes compatible with CABG procedure. Bones/joints: Unremarkable. IMPRESSION: No acute findings.
[2021-08-16 19:46] LABS: Basophils # 0.1 K/mm3 (0-0.2); Basophils % 1.6 % (0.1-2.0); Eosinophils % 0.1 % (0.1-12.0); Hematocrit 46.9 % (37.0-47.0); Lymphocytes # 1.6 K/mm3 (0.7-4.5); Lymphocytes % 20.4 % (10-50); Mean Corpuscular HGB Conc 31.9 g/dL (31.8-35.4); Mean Corpuscular Hemoglobin 28.9 pg (27.0-31.2); Mean Corpuscular Volume 90.4 fl (81-99); Mean Platelet Volume 7.8 fl (7.4-10.4); Monocytes # 0.5 K/mm3 (0.1-1.0); Monocytes % 6.1 % (1.7-9.3); Neutrophils # 5.8 K/mm3 (1.8-7.8); Neutrophils % 71.8 % (37.0-80.0); Platelet Count 314 K/mm3 (142-424); Red Blood Count 5.19 M/mm3 (4.20-5.40); Red Cell Distribution Width 13.5 % (11.5-17.5)
[2021-08-16 19:49] LABS: Chloride 103 mmol/L (98-107); Potassium 4.2 mmoL/L (3.5-5.1); Sodium 139 mmol/L (136-145)
[2021-08-16 19:51] LABS: Blood Urea Nitrogen 12 mg/dl (7-17); Creatinine Clearance Estimated 90 mL/min (50-200); Estimated Glomerular Filt Rate 84 ml/min (>60); GFR (African American) 102 ML/MIN (>60)
[2021-08-16 19:52] LABS: Alanine Aminotransferase 21 U/L (12-78); Albumin Level 4.3 g/dl (3.5-5.0); Albumin/Globulin Ratio 1.3 (1.1-1.8); Alkaline Phosphatase 97 U/L (38-126); Anion Gap 11.2 mEq/L (5-15); Aspartate Amino Transferase 26 U/L (14-36); Bilirubin,Total 0.9 mg/dl (0.2-1.3); Carbon Dioxide 29 mmol/L (22.0-30.0); Globulin 3.2 g/dL (1.3-3.2); Glucose 113 mg/dl (74-100); Total Protein,Serum 7.5 g/dl (6.3-8.2)
[2021-08-16 19:53] LABS: Calcium 8.9 mg/dl (8.4-10.2)
[2021-08-16 19:54] LABS: Activated Partial Thrombo Time 26.8 seconds (22.8-30.6); INR 0.99 (0.9-1.1); Prothrombin Time 11.2 seconds (10.1-12.5)
[2021-08-16 20:01] LABS: NT Pro Brain Natriuretic Pep. 354 pg/mL (0-125)
[2021-08-16 20:10] LABS: Troponin I < 0.01 ng/ml (0.00-0.034)
--- NOTE | 2021-08-16 20:36 | ECG_ITS ---
APPROVED REPORT Exam: Resting ECG HR:68 bpm ECG Measurements Heart Rate 68 AXES AR 169 P 65 QRSd 105 QRS 29 QT 429 T 62 QTc 447 Conclusion SINUS RHYTHM MODERATE ST DEPRESSION [0.05+ mV ST DEPRESSION] ABNORMAL ECG UNCONFIRMED REPORT Electronically signed by : Chito Hebert MD 08/17/2021 08:37:54
[2021-08-16 21:12] LABS: Procalcitonin < 0.030 ng/mL (0.0-2.0)
--- NOTE | 2021-08-16 21:30 | CT_ITS ---
PROCEDURE INFORMATION: Exam: CT Abdomen And Pelvis Without Contrast Exam date and time: 08/16/2021 9:43 PM Age: 66 years old Clinical indication: Abdominal pain; Localized; Left upper quadrant (luq); Additional info: Luq pain TECHNIQUE: Imaging protocol: Computed tomography of the abdomen and pelvis without contrast. Radiation optimization: All CT scans at this facility use at least one of these dose optimization techniques: automated exposure control; mA and/or kV adjustment per patient size (includes targeted exams where dose is matched to clinical indication); or iterative reconstruction. COMPARISON: CR XR CHEST PORTABLE 08/16/2021 7:32 PM FINDINGS: Lungs: Left basilar 4.5 mm and 4 mm pulmonary nodules, axial images 7 and 8. Liver: Multiple hypoattenuating circumscribed structures of the liver compatible with simple hepatic cysts with the largest measuring 1.8 cm in diameter. Gallbladder and bile ducts: Normal. No calcified stones. No ductal dilation. Pancreas: Normal. No ductal dilation. Spleen: Normal. No splenomegaly. Adrenal glands: Normal. No mass. Kidneys and ureters: Normal. No hydronephrosis. Stomach and bowel: Unremarkable. No obstruction. No mucosal thickening. Appendix: No evidence of appendicitis. Intraperitoneal space: Unremarkable. No free air. No significant fluid collection. Vasculature: Moderate calcific atherosclerotic disease of the abdominal aorta without aneurysmal dilatation is present. Lymph nodes: Left upper quadrant multiple prominent mesenteric nodes measuring greater than 5 mm in short axis, mesenteric edema and inflammatory changes can be seen with moderate infectious or inflammatory enteritis. Urinary bladder: Unremarkable as visualized. Reproductive: Unremarkable as visualized. Bones/joints: Unremarkable. No acute fracture. Soft tissues: Normal. IMPRESSION: 1. Left basilar 4.5 mm and 4 mm pulmonary nodules, axial images 7 and 8. For patients at low risk (minimal or absent history of smoking and of other known risk factors), no routine follow-up is indicated. For patients at high risk (history of smoking or of other known risk factors), consider optional CT Chest at 12 months. (Reference: Celeste) 2. Left upper quadrant multiple prominent mesenteric nodes measuring greater than 5 mm in short axis, mesenteric edema and inflammatory changes can be seen with moderate infectious or inflammatory enteritis. REFERENCES: Celeste Salazar, et al. Guidelines for Management of Incidental Pulmonary Nodules Detected on CT Images: From the Fleischner Society 2017. Radiology. 2017;284(1):228-243.
[2021-08-16 21:36] LABS: Erythrocyte Sedimentation Rate 12 mm/hr (0-30)
[2021-08-16 21:39] LABS: Lipase 154 U/L (23-300)
[2021-08-16 23:11] LABS: Troponin I < 0.01 ng/ml (0.00-0.034)
[2021-08-16 23:47] VITALS: BP 140/80; PULSE 59; RESP 20; TEMP 36.7; O2SAT 99
== END 2021-08-17 00:02 | disposition home or self-care (01) ==
PROVIDERS: Emergency Medicine; Emergency Provider Emergency Medicine; PCP Family Medicine
DX: R07.9 Chest pain, unspecified (principal); R94.31 Abnormal electrocardiogram [ECG] [EKG]; M54.2 Cervicalgia; M54.9 Dorsalgia, unspecified; I11.0 Hypertensive heart disease with heart failure; I25.119 Atherosclerotic heart disease of native coronary artery with unspecified angina pectoris; K21.9 Gastro-esophageal reflux disease without esophagitis; E78.5 Hyperlipidemia, unspecified; E03.9 Hypothyroidism, unspecified; E11.9 Type 2 diabetes mellitus without complications; B02.9 Zoster without complications; F32.A Depression, unspecified; F41.9 Anxiety disorder, unspecified; Z79.52 Long term (current) use of systemic steroids; Z79.82 Long term (current) use of aspirin; Z79.899 Other long term (current) drug therapy; Z95.1 Presence of aortocoronary bypass graft; Z82.49 Family history of ischemic heart disease and other diseases of the circulatory system
CPT/HCPCS: 36415; 71045; 74176; 80053; 83690; 83880; 84145; 84484; 85025; 85610; 85651; 85730; 86140; 93005; 96361; 96365; 96374; 96375; 99285

== ENCOUNTER → 2022-07-02 14:32 | Outpatient (CLI) | payer MEDICARE, SELFPAY ==
[2022-07-02 17:53] LABS: Hematocrit 45.9 % (37.0-47.0); Hemoglobin 15.1 g/dL (12.2-16.2); Mean Corpuscular HGB Conc 32.8 g/dL (31.8-35.4); Mean Corpuscular Hemoglobin 28.9 pg (27.0-31.2); Mean Corpuscular Volume 88.1 fl (81-99); Mean Platelet Volume 8.9 fl (7.4-10.4); Platelet Count 316 K/mm3 (142-424); Red Blood Count 5.21 M/mm3 (4.20-5.40); Red Cell Distribution Width 13.6 % (11.5-17.5); White Blood Count 5.8 K/mm3 (4.8-10.8)
[2022-07-02 17:54] LABS: Basophils # 0.1 K/mm3 (0-0.2); Basophils % 1.3 % (0.1-2.0); Eosinophils % 0.1 % (0.1-12.0); Lymphocytes # 1.9 K/mm3 (0.7-4.5); Lymphocytes % 32.6 % (10-50); Monocytes # 0.4 K/mm3 (0.1-1.0); Monocytes % 7.1 % (1.7-9.3); Neutrophils # 3.4 K/mm3 (1.8-7.8)
[2022-07-02 18:05] LABS: Alanine Aminotransferase 19 U/L (12-78); Albumin Level 4.5 g/dl (3.5-5.0); Albumin/Globulin Ratio 1.5 (1.1-1.8); Alkaline Phosphatase 74 U/L (38-126); Anion Gap 9.7 mEq/L (5-15); Aspartate Amino Transferase 27 U/L (14-36); Bilirubin,Total 0.7 mg/dl (0.2-1.3); Blood Urea Nitrogen 19 mg/dl (7-17); Calcium 9.4 mg/dl (8.4-10.2); Carbon Dioxide 29 mmol/L (22.0-30.0); Chloride 105 mmol/L (98-107); Chol/HDL Ratio 5.8 (1-3.5); Cholesterol 225 mg/dl (140-200); Estimated Glomerular Filt Rate 72 ml/min (>60); GFR (African American) 87 ML/MIN (>60); Glucose 109 mg/dl (74-100); HDL Cholesterol 39 mg/dl (40-60); Potassium 4.7 mmoL/L (3.5-5.1); Sodium 139 mmol/L (136-145); Total Protein,Serum 7.5 g/dl (6.3-8.2); Triglycerides 180 mg/dl (30-150); VLDL Cholesterol 36 mg/dL (0-40)
[2022-07-02 18:16] LABS: Direct LDL Cholesterol 144.39 mg/dL (100-129)
[2022-07-02 18:21] LABS: 25-OH Vitamin D, Total 17.3 ng/mL (30-100)
[2022-07-02 18:35] LABS: Thyroid Stimulating Hormone 1.63 uIU/mL (0.465-4.68)
[2022-07-02 19:06] LABS: Hemoglobin A1C 5.8 % (4.0-6.0)
== END ==
PROVIDERS: PCP Nurse Practitioner Family; Visit Provider Nurse Practitioner Family
DX: E55.9 Vitamin D deficiency, unspecified (principal); J32.9 Chronic sinusitis, unspecified; R73.03 Prediabetes; Z95.1 Presence of aortocoronary bypass graft; I10 Essential (primary) hypertension; I20.8 Other forms of angina pectoris
CPT/HCPCS: 80053; 80061; 82306; 83036; 84443; 85025

== ENCOUNTER → 2022-12-18 23:28 | Outpatient (CLI) | payer MEDICARE, SELFPAY | PROVIDERS: PCP Nurse Practitioner Family; Visit Provider Nurse Practitioner Family | DX: I25.10 Atherosclerotic heart disease of native coronary artery without angina pectoris (principal); E55.9 Vitamin D deficiency, unspecified ==

== ENCOUNTER → 2022-12-23 15:09 | Outpatient (CLI) | payer MEDICARE, SELFPAY ==
--- NOTE | 2022-12-23 15:13 | XR_ITS ---
FINAL REPORT CLINICAL HISTORY: Bilat Knee pain FINDINGS: Left knee Four views were obtained. There is no acute fracture or dislocation. There are mild and moderate degenerative changes. There is medial compartment narrowing. No joint effusion is identified. No soft tissue abnormality is identified. IMPRESSION: Degenerative changes as above. Reviewed, Interpreted and Dictated by Efra Stuart III, MD Transcribed by Lucy Lopez Authenticated and [facility]
--- NOTE | 2022-12-23 15:13 | XR_ITS ---
FINAL REPORT CLINICAL HISTORY: Bilat Knee pain FINDINGS: Right knee Four views were obtained. There is no acute fracture or dislocation. There are moderate degenerative changes. Medial compartment narrowing is identified. There are postoperative changes in the medial soft tissues. No joint effusion is identified. IMPRESSION: Degenerative and postoperative changes. Reviewed, Interpreted and Dictated by Efra Stuart III, MD Transcribed by Lucy Lopez Authenticated and [facility]
[2022-12-23 17:11] LABS: Alanine Aminotransferase 52 U/L (12-78); Albumin Level 5.1 g/dl (3.5-5.0); Albumin/Globulin Ratio 1.5 (1.1-1.8); Alkaline Phosphatase 77 U/L (38-126); Anion Gap 15.8 mEq/L (5-15); Aspartate Amino Transferase 49 U/L (14-36); Bilirubin,Total 0.7 mg/dl (0.2-1.3); Blood Urea Nitrogen 35 mg/dl (7-17); Calcium 10.3 mg/dl (8.4-10.2); Carbon Dioxide 33 mmol/L (22.0-30.0); Chloride 94 mmol/L (98-107); Chol/HDL Ratio 2.3 (1-3.5); Cholesterol 211 mg/dl (140-200); Estimated Glomerular Filt Rate 45 ml/min (>60); GFR (African American) 55 ML/MIN (>60); Globulin 3.4 g/dL (1.3-3.2); Glucose 103 mg/dl (74-100); HDL Cholesterol 90 mg/dl (40-60); Potassium 4.8 mmoL/L (3.5-5.1); Sodium 138 mmol/L (136-145); Total Protein,Serum 8.5 g/dl (6.3-8.2); Triglycerides 143 mg/dl (30-150); VLDL Cholesterol 29 mg/dL (0-40)
[2022-12-23 17:23] LABS: Direct LDL Cholesterol 85.57 mg/dL (100-129)
[2022-12-23 17:29] LABS: 25-OH Vitamin D, Total 61.6 ng/mL (30-100)
--- NOTE | 2023-01-14 09:13 | PC.NURSE ---
Have called patient multiple times and left messages about home sleep study with no return calls.
== END ==
PROVIDERS: PCP Nurse Practitioner Family; Visit Provider Nurse Practitioner Family
DX: M25.561 Pain in right knee (principal); M25.562 Pain in left knee; R06.83 Snoring; Z95.1 Presence of aortocoronary bypass graft; E55.9 Vitamin D deficiency, unspecified; I20.8 Other forms of angina pectoris
CPT/HCPCS: 36415; 73564; 80053; 80061; 82306; 84443

== ENCOUNTER 2023-02-25 09:15 | Day surgery (SDC) | payer MEDICARE, SELFPAY ==
[2023-02-25] VITALS (17 sets, daily range): BP systolic 109–144; BP diastolic 45–66; PULSE 50–90; RESP 16–94; TEMP 36.6; O2SAT 94–100; BMI 44.0
--- NOTE | 2023-02-25 | IR_ITS ---
APPROVED REPORT Patient Location: Outpatient Roller Cleaner: GEOFFREY Singh RT (R) PROCEDURES Left heart catheterization Left ventriculogram Selective coronary angiogram Selective engagement of the left internal mammary artery to the LAD Selective engagement of the saphenous vein graft to the circumflex Selective engagement of the saphenous vein graft to the right coronary INDICATION Coronary artery disease, Abnormal stress test, Angina pectoris, History of coronary bypass surgery, Informed consent was obtained prior to the procedure. COMPLICATIONS None Estimated Blood Loss: Less than 10 ml TECHNIQUE One percent lidocaine used to anesthetize the right groin. The right femoral artery was accessed via the Seldinger technique and a 5 Khmer sheath was placed in the right femoral artery. A JL 4, JR4 catheter were used to perform left heart catheterization, left ventriculogram selective coronary angiography as well as selective engagement of the 2 vein grafts and the left internal mammary artery. At the end of the procedure the patient was transferred to the postop holding area in stable condition for sheath removal. ANGIOGRAPHIC RESULTS The left main artery Has a distal 50% stenosis The left anterior descending artery Has an ostial 50% stenosis followed by proximal 30% stenosis. There is a severe stenosis in the midportion with evidence of competitive flow from the left internal mammary artery The circumflex artery Proximally occluded The right coronary artery Dominant with a proximal 70 to 80% stenosis mid vessel 80% stenosis with evidence of competitive flow distally The URIBE ventriculogram reveals Mild left ventricular dilatation with ejection fraction of 50% The left ventricular end-diastolic pressure 10 mmHg WASSERMAN widely patent to a small LAD Saphenous vein graft supplying a small obtuse marginal arteries widely patent Saphenous vein graft to the right coronary posterior descending artery is widely patent IMPRESSION Coronary disease as described above Adequate surgical revascularization as described above Mild left ventricular dilatation with ejection fraction 50% Normal left ventricular end-diastolic pressure PLAN 1. Maximize antianginal medications 2. Continue to risk factor modification Electronically signed by : Christo Layne MD 03/03/2023 13:17:29
[2023-02-25 09:50] LABS: Basophils # 0.1 K/mm3 (0-0.2); Basophils % 1.1 % (0.1-2.0); Eosinophils % 0.2 % (0.1-12.0); Hematocrit 44.5 % (37.0-47.0); Hemoglobin 14.8 g/dL (12.2-16.2); Lymphocytes # 2.1 K/mm3 (0.7-4.5); Lymphocytes % 27.2 % (10-50); Mean Corpuscular HGB Conc 33.4 g/dL (31.8-35.4); Mean Platelet Volume 7.6 fl (7.4-10.4); Monocytes # 0.5 K/mm3 (0.1-1.0); Monocytes % 6.7 % (1.7-9.3); Neutrophils # 4.9 K/mm3 (1.8-7.8); Neutrophils % 64.7 % (37.0-80.0); Platelet Count 272 K/mm3 (142-424); Red Blood Count 4.94 M/mm3 (4.20-5.40); Red Cell Distribution Width 13.6 % (11.5-17.5); White Blood Count 7.6 K/mm3 (4.8-10.8)
[2023-02-25 09:57] LABS: Anion Gap 11.1 mEq/L (5-15); Blood Urea Nitrogen 21 mg/dl (7-17); Calcium 9.6 mg/dl (8.4-10.2); Carbon Dioxide 31 mmol/L (22.0-30.0); Chloride 101 mmol/L (98-107); Creatinine Clearance Estimated 44 mL/min (50-200); Estimated Glomerular Filt Rate 63 ml/min (>60); GFR (African American) 76 ML/MIN (>60); Glucose 117 mg/dl (74-100); Potassium 4.1 mmoL/L (3.5-5.1); Sodium 139 mmol/L (136-145)
== END 2023-02-25 16:14 | disposition home or self-care (01) ==
PROVIDERS: PCP Nurse Practitioner Family; Visit Provider Internal Medicine
DX: R94.39 Abnormal result of other cardiovascular function study (principal); I25.118 Atherosclerotic heart disease of native coronary artery with other forms of angina pectoris; Z95.1 Presence of aortocoronary bypass graft; Z79.899 Other long term (current) drug therapy; I10 Essential (primary) hypertension; E78.5 Hyperlipidemia, unspecified; I25.709 Atherosclerosis of coronary artery bypass graft(s), unspecified, with unspecified angina pectoris; E66.9 Obesity, unspecified; Z68.42 Body mass index [BMI] 45.0-49.9, adult
CPT/HCPCS: 80048; 85025; 93459; 99152; C1725; C1769; C1894; Q9967

== ENCOUNTER → 2023-03-11 08:35 | Outpatient (CLI) | payer MEDICARE, SELFPAY ==
--- NOTE | 2023-03-11 08:36 | CA_ITS ---
APPROVED REPORT EXAM: Comprehensive 2D, Doppler, and color-flow Echocardiogram Potato Bucker: Ludivina Benitez RVT Ht: 5 ft 2 in Wt: 242lbs BSA: 2.07 BP: 167/59 mmHg Indications: CP,SOA,OBESITY,CAD,CABG,EDEMA,HTN,HLD 2D Dimensions LVOT 1.99 cm (M/F) 1.5-2.5 LA Volume 56.30 mL LA Volume Index 27.20 mL/m2 (M/F) 16-34 M-Mode Dimensions RVDd 3.45 cm (0.9-2.6) LA Diam 4.43 cm (1.9-4.0) LVDd 4.05 cm (3.5-5.7) Ao Diam 3.11 cm (2.0-3.7) LVDs 2.89 cm (3.5-5.7) IVSd 1.28 cm (0.6-1.1) PWd 0.44 cm (0.6-1.1) EF (Teich) 55.80% FS 28.60% EDV (Teich) 72.10 mL TAPSE 1.03 (<1.7) ESV (Teich) 31.90 mL LV Diastology E Decel Time 200.00 (160-240 msec) E/A Ratio 1.3 MED E' 12.90 (< 7 cm/sec) E'/MED E' Ratio 6.86 (>14) LAT E' 14.30 (<10 cm/sec) E/LAT E' Ratio 6.19 (>14) Aortic Valve AO Peak GR. 6.90 mmHg Mitral Valve MV E Max Alex. 88.00 (40-130 cm/s) MV A Velocity 68.00 (40-130 cm/s) E/A Ratio 1.30 MV Decel. Time 200.00 (160-240 ms) MV PHT 59.00 ms Pulmonary Valve PV Peak Velocity 87.00 (50-150 cm/s) Tricuspid Valve TR P. Velocity 198.00 cm/s RAP Estimate 10.00 mmHg RVSP 25.70 mmHg Left Ventricle The left ventricle is normal size. The left ventricular systolic function is normal. The left ventricular ejection fraction is within the normal range. There is normal left ventricular wall thickness. There is normal LV segmental wall motion. The left ventricular diastolic function is normal. LVEF is 55%. Right Ventricle Right ventricle is mildly dilated. The right ventricular systolic function is normal. Atria The left atrium size is normal. Right atrium is mildly dilated. Aortic Valve The aortic valve opens well. There is no aortic valvular stenosis. Trace aortic regurgitation. Mitral Valve The mitral valve is normal in structure. No evidence of mitral valve stenosis. Mild mitral regurgitation. Tricuspid Valve The tricuspid valve leaflets are thin and pliable. Trace tricuspid regurgitation. RVSP is 20-25 mmHg. Pulmonic Valve The pulmonary valve is normal in structure. Trace pulmonic regurgitation. Great Vessels The aortic root is normal in size. The ascending aorta is normal in size. IVC is normal in size and collapses >50% with inspiration. Pericardium There is no pericardial effusion. Other Information Study Quality: Fair Conclusion Normal biventricular systolic function. Mild RV dilation. Mild RA dilation. Mild MR, mild TR. Electronically signed by : Carolyn Bello MD 03/13/2023 21:22:20
== END ==
PROVIDERS: PCP Nurse Practitioner Family; Visit Provider Internal Medicine
DX: R06.00 Dyspnea, unspecified; E66.9 Obesity, unspecified; E78.5 Hyperlipidemia, unspecified; I25.10 Atherosclerotic heart disease of native coronary artery without angina pectoris
CPT/HCPCS: 93306

== ENCOUNTER → 2023-03-11 14:09 | Outpatient (CLI) | payer MEDICARE, SELFPAY ==
[2023-03-11 19:44] LABS: Anion Gap 13.6 mEq/L (5-15); Blood Urea Nitrogen 21 mg/dl (7-17); Calcium 9.5 mg/dl (8.4-10.2); Carbon Dioxide 30 mmol/L (22.0-30.0); Chloride 104 mmol/L (98-107); Estimated Glomerular Filt Rate 63 ml/min (>60); GFR (African American) 76 ML/MIN (>60); Glucose 135 mg/dl (74-100); Potassium 4.6 mmoL/L (3.5-5.1); Sodium 143 mmol/L (136-145)
[2023-03-11 20:14] LABS: Thyroid Stimulating Hormone 1.47 uIU/mL (0.465-4.68)
== END ==
PROVIDERS: PCP Nurse Practitioner Family; Visit Provider Nurse Practitioner Family
DX: I10 Essential (primary) hypertension (principal); R06.83 Snoring
CPT/HCPCS: 80048; 84443; 93306

== ENCOUNTER → 2023-04-22 12:47 | Outpatient (CLI) | payer MEDICARE, SELFPAY | PROVIDERS: PCP Nurse Practitioner Family; Visit Provider Nurse Practitioner Family | DX: G47.33 Obstructive sleep apnea (adult) (pediatric) (principal) | CPT/HCPCS: G0399 ==

== ENCOUNTER 2023-11-17 14:31 | Outpatient (CLI) | payer MEDICARE, SELFPAY ==
--- NOTE | 2023-11-17 | XR_ITS ---
FINAL REPORT CLINICAL HISTORY: Left knee pain FINDINGS: Three views of the left knee reveal no evidence of fracture or dislocation. The bony alignment is normal. There is moderate medial compartment osteoarthritis with moderate to severe medial compartment narrowing. There is no evidence of joint effusion. No localized soft tissue abnormality is seen. IMPRESSION: Moderate medial compartment osteoarthritis with moderate to severe medial compartment narrowing. Reviewed, Interpreted and Dictated by Efra Stuart III, MD Transcribed by Maggie Flowers Authenticated and [facility]
--- NOTE | 2023-11-17 14:35 | XR_ITS ---
FINAL REPORT CLINICAL HISTORY: Bilat Knee pain COMPARISON: 12/23/2022 FINDINGS: Three views of the left knee reveal no evidence of fracture or dislocation. The bony alignment is normal. Mild and moderate degenerative change is noted, with significant medial compartment joint space narrowing. A small joint effusion is present. No localized soft tissue abnormality is seen. IMPRESSION: No acute abnormality identified. Reviewed, Interpreted and Dictated by Efra Stuart III, MD Transcribed by Blanquita Brown Authenticated and [facility]
== END 2023-11-17 23:59 | disposition home or self-care (01) ==
LOC: RAD 14:32
PROVIDERS: PCP Nurse Practitioner Family; Visit Provider Nurse Practitioner Family
DX: M25.561 Pain in right knee (principal); M25.562 Pain in left knee; G89.29 Other chronic pain
CPT/HCPCS: 73562

== ENCOUNTER 2024-08-16 15:51 | Outpatient (CLI) | payer MEDICARE, SELFPAY ==
--- NOTE | 2024-08-16 16:00 | MM_ITS ---
PROCEDURE INFORMATION: Exam: MG Bilateral Screening 3D Mammography Exam date and time: 08/16/2024 3:54 PM Age: 69 years old Clinical indication: Screening examination. TECHNIQUE: Imaging protocol: Bilateral Screening tomosynthesis and 2D mammography including computer-aided detection (CAD) when performed. COMPARISON: No relevant prior studies available. FINDINGS: MAMMOGRAPHY: Breast composition: The breasts are almost entirely fatty. Mass: None. Architectural distortion: None. Calcifications: No suspicious calcifications. Asymmetric density: None. Skin thickening: None. Axillary adenopathy: None. IMPRESSION: No mammographic evidence of malignancy. Annual screening is recommended unless otherwise clinically indicated. ASSESSMENT: BI-RADS Category 1: Negative.
== END 2024-08-16 23:59 | disposition home or self-care (01) ==
LOC: RAD 15:52
PROVIDERS: PCP Nurse Practitioner Family; Visit Provider Nurse Practitioner Family
DX: Z12.31 Encounter for screening mammogram for malignant neoplasm of breast (principal)
CPT/HCPCS: 77063; 77067

== ENCOUNTER 2024-09-18 10:31 | Outpatient (CLI) | payer MEDICARE, SELFPAY ==
[2024-09-18 10:49] LABS: Basophils # 0.1 K/mm3 (0-0.2); Hematocrit 47.2 % (37.0-47.0); Hemoglobin 14.4 g/dL (12.2-16.2); Lymphocytes # 1.8 K/mm3 (0.7-4.5); Mean Corpuscular HGB Conc 30.5 g/dL (31.8-35.4); Mean Corpuscular Hemoglobin 27.9 pg (27.0-31.2); Mean Corpuscular Volume 91.5 fl (81-99); Mean Platelet Volume 9.7 fl (7.4-10.4); Monocytes # 0.7 K/mm3 (0.1-1.0); Monocytes % 8.6 % (1.7-9.3); Neutrophils # 5.6 K/mm3 (1.8-7.8); Neutrophils % 67.9 % (37.0-80.0); Nucleated Red Blood Cells # 0 10^3/uL; Nucleated Red Blood Cells % 0 %; Platelet Count 267 K/mm3 (142-424); Red Blood Count 5.16 M/mm3 (4.20-5.40); Red Cell Distribution Width 13.5 % (11.5-17.5); White Blood Count 8.3 K/mm3 (4.8-10.8)
[2024-09-18 11:07] LABS: Albumin Level 4.2 g/dl (3.5-5.0); Chloride 103 mmol/L (98-107); Sodium 139 mmol/L (136-145)
[2024-09-18 11:08] LABS: Potassium 4.5 mmoL/L (3.5-5.1)
[2024-09-18 11:10] LABS: Alanine Aminotransferase 67 U/L (12-78); Albumin/Globulin Ratio 1.6 (1.1-1.8); Anion Gap 9.5 mEq/L (5-15); Aspartate Amino Transferase 34 U/L (14-36); Blood Urea Nitrogen 18 mg/dl (7-17); Carbon Dioxide 31 mmol/L (22.0-30.0); Estimated Glomerular Filt Rate 62 ml/min (>60); GFR (African American) 76 ML/MIN (>60); Globulin 2.7 g/dL (1.3-3.2); Total Protein,Serum 6.9 g/dl (6.3-8.2)
[2024-09-18 11:11] LABS: Alkaline Phosphatase 181 U/L (38-126); Bilirubin,Total 0.5 mg/dl (0.2-1.3); Calcium 9.9 mg/dl (8.4-10.2); Chol/HDL Ratio 3.3 (1-3.5); Cholesterol 130 mg/dl (140-200); Glucose 109 mg/dl (74-100); HDL Cholesterol 40 mg/dl (40-60); Triglycerides 168 mg/dl (30-150); VLDL Cholesterol 34 mg/dL (0-40)
[2024-09-18 11:22] LABS: Direct LDL Cholesterol 57.95 mg/dL (100-129)
[2024-09-18 11:41] LABS: Thyroid Stimulating Hormone 0.75 uIU/mL (0.465-4.68)
== END 2024-09-18 23:59 | disposition home or self-care (01) ==
LOC: LAB 10:32
PROVIDERS: PCP Family Medicine; Visit Provider Family Medicine
DX: E78.2 Mixed hyperlipidemia (principal); I10 Essential (primary) hypertension; E03.9 Hypothyroidism, unspecified; I25.810 Atherosclerosis of coronary artery bypass graft(s) without angina pectoris
CPT/HCPCS: 36415; 80053; 80061; 84443; 85025

== ENCOUNTER 2024-10-19 11:06 | Outpatient (CLI) | payer MEDICARE, SELFPAY ==
--- NOTE | 2024-10-19 | CA_ITS ---
APPROVED REPORT Exam: Pharmacologic Technologist: Vilma Masterson Ht: 5 ft 2 in Wt: 241 lbs BSA: 2.07 m2 HR: 51 bpm BP: 134/58 mmHg Medical History Cardiac Risk Factors: HTN, Hyperlipidemia, FHX of CAD Stress Test Details HR Resting HR: 51 bpm Max Heart Rate (APMHR): 153 bpm Target HR (85% APMHR): 130 bpm Recovery HR: 64 bpm BP Resting BP: 134.0/58.0 mmHg Recovery BP: 114.0/57.0 mmHg ECG Stress ECG Conclusion During lexiscan pt experinced SOA and nausea. No arrhythmias noted. Nondiagnostic adam. Electronically signed by : Carolyn Bello MD 10/22/2024 20:56:32
--- NOTE | 2024-10-19 11:15 | CA_ITS ---
APPROVED REPORT EXAM: Comprehensive 2D, Doppler, and color-flow Echocardiogram Dog Barber: LEA Alarcon, RVS Ht: 5 ft 2 in Wt: 241lbs BSA: 2.07 BP: 128/46 mmHg Indications: DYSPNEA, PRE-OP ASSESSMENT, CAORONARY ARTERY [id number], PALPITATIONS 2D Dimensions Left Atrium 3.34 cm LA Volume 52.30 mL LA Volume Index 25.715755 mL/m2 (M/F) 16-34 M-Mode Dimensions RVDd 2.96 cm (0.9-2.6) LA Diam 4.66 cm (1.9-4.0) LVDd 5.47 cm (3.5-5.7) LVDs 3.61 cm (3.5-5.7) IVSd 0.93 cm (0.6-1.1) PWd 0.89 cm (0.6-1.1) EF (Teich) 62.40% EPSs 0.68 cm FS 34.00% EDV (Teich) 145.60 mL TAPSE 1.30 (<1.7) ESV (Teich) 54.80 mL LV Diastology E Decel Time 167 (160-240 msec) E/A Ratio 1.69 MED A' 8.60 cm/s LAT A' 9.10 cm/s Aortic Valve DANIELA Index 0.83 cm2/m2 AoV Peak Alex. 126.0 (50-130 cm/s) AI PHT 266.00 ms AO Peak GR. 6.30 mmHg AO Mean GR. 3.20 (<5 mmHg) AO VTI 31.9 (18-25 cm) DANIELA (VTI) 1.75 (2.5-4.5 cm2) Mitral Valve MV A Velocity 62.0 (40-130 cm/s) E/A Ratio 1.69 Pulmonary Valve WI End VMAX 147.0 cm/s Tricuspid Valve TR P. Velocity 199.00 cm/s RAP Estimate 10.00 mmHg RVSP 25.80 mmHg Left Ventricle The left ventricle is normal size. The left ventricular systolic function is normal. The left ventricular ejection fraction is within the normal range. There is normal left ventricular wall thickness. There is normal LV segmental wall motion. The left ventricular diastolic function is normal. LVEF is 55%. Right Ventricle Right ventricle is mildly dilated. The right ventricular systolic function is normal. Atria Left atrium is mildly dilated. Right atrium is mildly dilated. There is no Doppler evidence of interatrial shunt. Aortic valve opens well. Aortic Valve There is no aortic valvular stenosis. No aortic regurgitation is present. Mitral Valve The mitral valve is normal in structure. No evidence of mitral valve stenosis. Mild mitral regurgitation. Tricuspid Valve Tricuspid valve is grossly normal in structure and function. Trace tricuspid regurgitation. There is insufficient TR jet to estimate RVSP. Pulmonic Valve The pulmonary valve is normal in structure. Mild pulmonic regurgitation. Great Vessels The aortic root is normal in size. IVC is normal in size and collapses >50% with inspiration. Pericardium There is no pericardial effusion. Other Information Study Quality: Fair Conclusion Normal biventricular systolic function. Mild RV dilation. Mild biatrial dilation. Mild MR, mild PI. Electronically signed by : Carolyn Bello MD 10/26/2024 14:39:09
--- NOTE | 2024-10-19 12:00 | NM_ITS ---
APPROVED REPORT Exam: Nuclear Stress Test Indication: soa..plapitations..fatigue Patient Location: Outpatient Stress Tech: Vilma RETANA Tech:Corine Lopez GEOFFREY RT(R)(N) Ht: 5 ft 1 in Wt: 241 lbs Bra Size: d HR: 52 bpm BP: 134/58 mmHg BSA: 2.04 m2 TID: 0.99 BMI: 45.5 History: soa..plapitations..fatigue Procedure: Patient received 0.4 mg of intravenous Lexiscan, resting heart rate 52 bpm, resting blood pressure 134/58 mmHg, with Lexiscan maximum heart rate achieved was 71 bpm which is 85 % of the maximum predicted heart rate and blood pressure was 134/58 mmHg. With Lexiscan, patient denied any complaint of chest pain. Cardiac Stress and Resting SPECT Images: Cardiac Stress and Resting SPECT images were obtained using technetium 99m Myoview 32.4 mCi stress and 10.68 mCi at rest. Resting and stress imaging in supine position demonstrate a medium sized, moderate, fixed perfusion defect in the anterior LV wall. This is no longer visualized with prone stress imaging. Findings are suggestive of soft tissue attenuation. Gated imaging demonstrates normal global and regional LV systolic function. LVEF is calculated at 55%. Conclusion: Soft tissue attenuation is present. No evidence of fixed or reversible perfusion defects. Gated imaging demonstrates normal global and regional LV systolic function. LVEF is calculated at 55%. Electronically signed by : Carolyn Bello MD 10/22/2024 20:54:15
[2024-10-19] MEDS: ISOTOPE MYOVIEW (PER STUDY) 1 DOSE IV (14:06)
[2024-10-19] MEDS: REGADENOSON 0.4MG/5ML SYRINGE 0.4 MG IV (14:06)
[2024-10-19] MEDS: SODIUM CHLORIDE 0.9% 10ML SYR (RAD ONLY) 10 ML IV ×2 (14:07)
== END 2024-10-19 23:59 | disposition home or self-care (01) ==
LOC: RT 11:07
PROVIDERS: PCP Family Medicine; Visit Provider Nurse Practitioner
DX: Z01.810 Encounter for preprocedural cardiovascular examination (principal); I08.8 Other rheumatic multiple valve diseases; I25.119 Atherosclerotic heart disease of native coronary artery with unspecified angina pectoris; R94.39 Abnormal result of other cardiovascular function study; Z95.1 Presence of aortocoronary bypass graft
CPT/HCPCS: 78452; 93017; 93018; 93306; A9502; J2785

== ENCOUNTER 2024-11-06 10:45 | Outpatient (CLI) | payer MEDICARE, SELFPAY ==
--- OUTSIDE RECORDS SUMMARY | 2024-11-08 11:11 | XMS_ITS | Clinical Summary ---
Author Organization [facility] Address [address] [place] [address] Care Team Providers Care Bright Cutter Name Role Phone Cecil Temple MD Primary Care Provider [phone] Family History Medical History Relation Name Comments Coronary artery disease Brother Conversions - Other Father Fall, ac cidental Alzheimer's disease Mother Relation Name Status Comments Brother Father Mother Social History Tobacco Use Types Packs/Day Years Used Date Smoking Tobacco: Never Alcohol Use Standard Drinks/Week Comments No 0 (1 standard drink = 0.6 oz pur e alcohol) Comments Unknown Sex and Gender Information Value Date Recorded Sex Assigned at Female 05/03/2021 6:40 PM EST Legal Sex Female 7:51 PM EDT Gender Identity Female 05/03/2021 6:40 PM EST Sexual Orientation Straight 05/03/2021 6: 40 PM EST Last Filed Vital Signs Vital Sign Reading Time Taken Comments Blood Pressure 123/74 03/06/2020 2:26 PM EDT Pulse 54 03/06/2020 2:26 PM EDT Temperature 36.7 C (98 F) 03/06/2020 2:26 PM EDT Respiratory Rate - - Oxygen Saturation - - Inhaled Oxygen Concentration - - Weight 96.2 kg (212 lb 3.1 oz) 03/06/2020 2:26 P M EDT Height 157.5 cm (5' 2 ) 03/06/2020 2:26 PM EDT Body Mass Index 38.81 03/06/2020 2:26 PM EDT Plan of Treatment Not on file Care Teams Bright Cutter Relationship Specialty Start Date End Date Cecil Temple MD [address] [place] [address] PCP - General 09/27/20
== END 2024-11-06 23:59 | disposition home or self-care (01) ==
LOC: LAB.DROPOF 11-08 10:45
PROVIDERS: PCP Family Medicine; Visit Provider Family Medicine
DX: B35.1 Tinea unguium (principal)
CPT/HCPCS: 87102; 87206

== ENCOUNTER 2024-11-18 13:41 | Outpatient (CLI) | payer MEDICARE, SELFPAY ==
--- NOTE | 2024-11-18 13:44 | XR_ITS ---
PROCEDURE INFORMATION: Exam: XR Right Hand Exam date and time: 11/18/2024 1:38 PM Age: 69 years old Clinical indication: Other: Onychomycosis TECHNIQUE: Imaging protocol: Radiologic exam of the right hand. Views: 1 or 2 views. COMPARISON: No relevant prior studies available. FINDINGS: Bones/joints: There is no evidence of acute fracture or dislocation. Mild degenerative changes involve the DIP joints, greatest involving the 2nd digit. Can not exclude mild erosive change involving the medial aspect of the 2nd DIP joint versus subchondral cystic degeneration. Mild subchondral cystic degeneration is also suggested involving the 4th DIP joint. Soft tissues: No significant soft tissue edema. No subcutaneous emphysema or radiopaque foreign bodies. IMPRESSION: 1. No acute posttraumatic osseous injury. 2. [id number] osteoarthritic degenerative changes involving the DIP joint. Can not entirely exclude erosive change involving the 2nd DIP joint.
--- NOTE | 2024-11-18 13:44 | XR_ITS ---
PROCEDURE INFORMATION: Exam: XR Left Knee Exam date and time: 11/18/2024 1:45 PM Age: 69 years old Clinical indication: Pain; Knee; Bilateral; Additional info: Knee pain TECHNIQUE: Imaging protocol: Radiologic exam of the left knee. Views: 3 views. COMPARISON: CR XR KNEE LT 3V 11/17/2023 2:41 PM FINDINGS: Bones/joints: There is no evidence of acute fracture or dislocation. Moderate osteoarthritic degenerative changes involve the medial femorotibial joint space with joint space narrowing, subchondral sclerosis and marginal osteophytes. There is mild sharpening of the tibial spines. Minor marginal osteophytes involve the patellofemoral joint space. Soft tissues: No significant soft tissue edema. No subcutaneous emphysema or radiopaque foreign bodies. No significant suprapatellar joint effusion. IMPRESSION: 1. No evidence of acute fracture. 2. Moderate osteoarthritis most prominent involving the medial femorotibial joint space.
--- NOTE | 2024-11-18 13:44 | XR_ITS ---
PROCEDURE INFORMATION: Exam: XR Left Hand Exam date and time: 11/18/2024 1:40 PM Age: 69 years old Clinical indication: Condition or disease; Joint stiffness; Hand; Bilateral; Additional info: Arthritis TECHNIQUE: Imaging protocol: Radiologic exam of the left hand. Views: 1 or 2 views. COMPARISON: No relevant prior studies available. FINDINGS: Bones/joints: There is no evidence of acute fracture or dislocation. There are mild degenerative changes involving the DIP joints. Minor subchondral cystic changes are present. Moderate osteoarthritic degenerative changes involving the 1st carpometacarpal joint. Soft tissues: No significant soft tissue edema. No subcutaneous emphysema or radiopaque foreign bodies. IMPRESSION: 1. No acute posttraumatic osseous injury. 2. Moderate osteoarthritis involving the 1st carpometacarpal joint. 3. Mild osteoarthritic degenerative changes involving the DIP joints.
--- NOTE | 2024-11-18 13:44 | XR_ITS ---
PROCEDURE INFORMATION: Exam: XR Right Knee Exam date and time: 11/18/2024 1:43 PM Age: 69 years old Clinical indication: Pain; Knee; Bilateral; Additional info: Vikash knee pain TECHNIQUE: Imaging protocol: Radiologic exam of the right knee. Views: 3 views. COMPARISON: CR XR KNEE RT 3V 11/17/2023 2:41 PM FINDINGS: Bones/joints: There is no evidence of acute fracture or dislocation. Moderate to severe osteoarthritic degenerative changes involve the medial femorotibial joint space with moderate to severe joint space narrowing, subchondral sclerosis and marginal osteophytes. There is mild sharpening of the tibial spines. Mild marginal osteophytes also involve the lateral femorotibial joint space and the patellofemoral joint space. Soft tissues: No subcutaneous emphysema or radiopaque foreign bodies. No significant suprapatellar joint effusion. Surgical clips are present in the proximal medial soft tissues of the calf. There is mild soft tissue fullness involving the proximal calf laterally and anteriorly. IMPRESSION: 1. No evidence of acute fracture. 2. Moderate osteoarthritis, most prominent involving the medial femorotibial joint space.
--- OUTSIDE RECORDS SUMMARY | 2024-11-18 13:45 | XMS_ITS ---
Author Organization Unknown Plan of Treatment Description Planned Activity Planned Timing - Telephone encounter Jul 16, 2023 Patient Care team information Name Category Status Period Participants - - Proposed period not known -
--- OUTSIDE RECORDS SUMMARY | 2024-11-18 13:45 | XMS_ITS | Clinical Summary ---
Author Organization [facility] Address [address] [place] [address] Care Team Providers Care Clinical Pharmacy Technician Name Role Phone Cecil Temple MD Primary Care Provider +1- [phone] Family History Medical History Relation Name Comments [...] of Treatment Not on file Care Teams Clinical Pharmacy Technician Relationship Specialty Start Date End Date Cecil Temple MD [address] [place] [address] PCP - General 09/27/20
== END 2024-11-18 23:59 | disposition home or self-care (01) ==
LOC: RAD 13:44
PROVIDERS: PCP Family Medicine; Visit Provider Family Medicine
DX: M17.0 Bilateral primary osteoarthritis of knee (principal); M18.12 Unilateral primary osteoarthritis of first carpometacarpal joint, left hand; M19.042 Primary osteoarthritis, left hand; M19.041 Primary osteoarthritis, right hand; B35.1 Tinea unguium
CPT/HCPCS: 73120; 73562

== ENCOUNTER 2024-12-01 15:39 | Outpatient (CLI) | payer MEDICARE, SELFPAY ==
--- OUTSIDE RECORDS SUMMARY | 2024-12-01 15:42 | XMS_ITS | Clinical Summary ---
Author Organization [facility] Address [address] [place] [address] Care Team Providers Care Door Frame Assembler Machine Name Role Phone Cecil Temple MD Primary Care Provider +1- [phone] Family History Medical History Relation Name Comments [...] of Treatment Not on file Care Teams Door Frame Assembler Machine Relationship Specialty Start Date End Date Cecil Tepmle MD [address] [place] [address] PCP - General 09/27/20
[2024-12-07 03:36] LABS: Anti-CCP Abs,IgG and IgA (RDL) < 20 Units (<20)
== END 2024-12-01 23:59 | disposition home or self-care (01) ==
LOC: LAB 15:40
PROVIDERS: PCP Family Medicine; Visit Provider Family Medicine
DX: M19.90 Unspecified osteoarthritis, unspecified site (principal)
CPT/HCPCS: 36415; 86200

== ENCOUNTER 2025-01-08 12:22 | Outpatient (CLI) | payer MEDICARE, SELFPAY ==
[2025-01-08 18:19] LABS: Thyroid Stimulating Hormone 0.07 uIU/mL (0.465-4.68)
[2025-01-08 20:07] LABS: Free T4 (Free Thyroxine) 2.12 ng/dl (0.78-2.19)
[2025-01-09 11:18] LABS: Albumin Level 4.4 g/dl (3.5-5.0); Chloride 105 mmol/L (98-107); Potassium 5.0 mmoL/L (3.5-5.1); Sodium 141 mmol/L (136-145)
[2025-01-09 11:21] LABS: Alanine Aminotransferase 17 U/L (12-78); Albumin/Globulin Ratio 1.6 (1.1-1.8); Alkaline Phosphatase 101 U/L (38-126); Anion Gap 12.0 mEq/L (5-15); Aspartate Amino Transferase 25 U/L (14-36); Bilirubin,Total 0.8 mg/dl (0.2-1.3); Blood Urea Nitrogen 14 mg/dl (7-17); Calcium 9.7 mg/dl (8.4-10.2); Carbon Dioxide 29 mmol/L (22.0-30.0); Creatinine,Serum 0.80 mg/dl (0.52-1.04); Estimated Glomerular Filt Rate 72 ml/min (>60); GFR (African American) 87 ML/MIN (>60); Globulin 2.7 g/dL (1.3-3.2); Glucose 112 mg/dl (74-100); Total Protein,Serum 7.1 g/dl (6.3-8.2)
--- OUTSIDE RECORDS SUMMARY | 2025-01-10 10:09 | XMS_ITS | Clinical Summary ---
Author Organization [facility] Address [address] [place] [address] Care Team Providers Care Jet Mechanic Name Role Phone Cecil Temple MD Primary Care Provider +1- [phone] Family History Medical History Relation Name Comments [...] of Treatment Not on file Care Teams Jet Mechanic Relationship Specialty Start Date End Date Cecil Temple MD [address] [place] [address] PCP - General 09/27/20
== END 2025-01-08 23:59 | disposition home or self-care (01) ==
LOC: LAB.DROPOF 01-10 10:07
PROVIDERS: PCP Family Medicine; Visit Provider Family Medicine
DX: E03.9 Hypothyroidism, unspecified (principal); R79.89 Other specified abnormal findings of blood chemistry
CPT/HCPCS: 80053; 84439; 84443

== ENCOUNTER 2025-02-05 07:25 | Outpatient (CLI) | payer MEDICARE, SELFPAY ==
--- OUTSIDE RECORDS SUMMARY | 2025-02-05 07:28 | XMS_ITS | Clinical Summary ---
Author Organization [facility] Address [address] [place] [address] Care Team Providers Care Labor Service Representative Name Role Phone Cecil Temple MD Primary Care Provider +1- [phone] Family History Medical History Relation Name Comments [...] of Treatment Not on file Care Teams Labor Service Representative Relationship Specialty Start Date End Date Cecil Temple MD [address] [place] [address] PCP - General 09/27/20
--- NOTE | 2025-02-05 07:30 | CT_ITS ---
FINAL REPORT TECHNIQUE: Thin section axial CT images of the right hip, knee, and ankle were obtained and reviewed. Coronal and sagittal reformats were obtained and reviewed. This study was performed with techniques to keep radiation doses as low as reasonably achievable (ALARA). Individualized dose reduction techniques using automated exposure control or adjustment of mA and/or kV according to the patient''s size were employed. CLINICAL HISTORY: right knee pain, MyKnee Protocol COMPARISON: None FINDINGS: There are advanced tricompartmental degenerative changes of the knee. There is no joint effusion at the knee. Remaining soft tissues are without acute abnormality. There is mild degenerative disease of the right hip and right ankle. There is no acute fracture or dislocation. IMPRESSION: No acute abnormality identified. Advanced degenerative disease of the right knee. Reviewed, Interpreted and Dictated by Teresa Tavera MD Transcribed by Quita Turner Authenticated and [facility]
== END 2025-02-05 23:59 | disposition home or self-care (01) ==
LOC: RAD 07:26
PROVIDERS: PCP Family Medicine; Visit Provider Orthopaedic Surgery
DX: M17.11 Unilateral primary osteoarthritis, right knee (principal)
CPT/HCPCS: 73700

== ENCOUNTER 2025-03-28 10:39 | Outpatient (CLI) | payer MEDICARE, SELFPAY ==
--- NOTE | 2025-03-28 10:43 | XR_ITS ---
FINAL REPORT TECHNIQUE: 2 view chest CLINICAL HISTORY: right clavicle chest wall pain COMPARISON: 08/16/2021 FINDINGS: No acute pulmonary opacities present. There is no evidence of effusion or pneumothorax. There is evidence of prior median sternotomy, presumably from CABG. Otherwise mediastinum is unremarkable. The heart is normal in size. IMPRESSION: Unremarkable chest, status post CABG. Reviewed, Interpreted and Dictated by Gopi Rojo MD Transcribed by Quita Turner Authenticated and [facility]
--- OUTSIDE RECORDS SUMMARY | 2025-03-28 10:47 | XMS_ITS | Clinical Summary ---
Author Organization [facility] Address [address] [place] [address] Care Team Providers Care Cardiothoracic Anesthesia Technician Name Role Phone Cecil Temple MD Primary Care Provider +1- [phone] Family History Medical History Relation Name Comments [...] of Treatment Not on file Care Teams Cardiothoracic Anesthesia Technician Relationship Specialty Start Date End Date Cecil Temple MD [address] [place] [address] PCP - General 09/27/20
== END 2025-03-28 23:59 | disposition home or self-care (01) ==
LOC: RAD 10:39
PROVIDERS: PCP Family Medicine; Visit Provider Nurse Practitioner
DX: M89.8X1 Other specified disorders of bone, shoulder (principal); R07.89 Other chest pain; Z95.1 Presence of aortocoronary bypass graft
CPT/HCPCS: 71046

== ENCOUNTER 2025-04-06 09:24 | Outpatient (CLI) | payer MEDICARE, SELFPAY ==
[2025-04-05 13:50] VITALS: BMI 44.9
--- OUTSIDE RECORDS SUMMARY | 2025-04-06 09:35 | XMS_ITS | Clinical Summary ---
Author Organization [facility] Address [address] [place] [address] Care Team Providers Care Lumber Racker Name Role Phone Cecil Temple MD Primary Care Provider +1- [phone] Family History Medical History Relation Name Comments [...] of Treatment Not on file Care Teams Lumber Racker Relationship Specialty Start Date End Date Cecil Temple MD [address] [place] [address] PCP - General 09/27/20
[2025-04-06 10:16] LABS: Hematocrit 42.9 % (37.0-47.0); Hemoglobin 13.3 g/dL (12.2-16.2); Immature Granulocytes % 0.3 %; Mean Corpuscular HGB Conc 31.0 g/dL (31.8-35.4); Mean Corpuscular Hemoglobin 27.9 pg (27.0-31.2); Mean Corpuscular Volume 89.9 fl (81-99); Nucleated Red Blood Cells % 0 %; Platelet Count 251 K/mm3 (142-424); Red Blood Count 4.77 M/mm3 (4.20-5.40); Red Cell Distribution Width-SD 45.1 fL; White Blood Count 6.7 K/mm3 (4.8-10.8)
[2025-04-06 10:38] LABS: Chloride 103 mmol/L (98-107); Sodium 142 mmol/L (136-145)
[2025-04-06 10:39] LABS: Potassium 4.3 mmoL/L (3.5-5.1)
[2025-04-06 10:41] LABS: Blood Urea Nitrogen 16 mg/dl (7-17); Creatinine Clearance Estimated 43 mL/min (50-200); Creatinine,Serum 0.80 mg/dl (0.52-1.04); Estimated Glomerular Filt Rate 71 ml/min (>60); GFR (African American) 86 ML/MIN (>60)
[2025-04-06 10:42] LABS: Anion Gap 14.3 mEq/L (5-15); Calcium 9.1 mg/dl (8.4-10.2); Carbon Dioxide 29 mmol/L (22.0-30.0); Glucose 112 mg/dl (74-100)
== END 2025-04-06 23:59 | disposition home or self-care (01) ==
LOC: PREOP 09:25
PROVIDERS: PCP Family Medicine; Visit Provider Orthopaedic Surgery
DX: Z01.812 Encounter for preprocedural laboratory examination (principal)
CPT/HCPCS: 80048; 85025

== ENCOUNTER 2025-04-17 11:55 | Observation (INO) | payer MEDICARE, SELFPAY ==
[2025-04-06 11:17] VITALS: BMI 44.9
--- NOTE | 2025-04-06 11:24 | SW/DCPLANNER ---
I spoke w/ patient regarding upcoming procedure w/ Dr Carcamo TKA 04/17. Patient stated that she resides at home w/ her and currently has a rolling walker at home. I did notify patient that she does have an outpatient PT appointment scheduled on 04/19. Patient stated that pending how she feels after surgery she may be more interested in home health services. I informed patient that CM will continue to follow up w/ patient post procedure to arrange home health vs outpatient PT utilizing [facility].
[2025-04-17] VITALS (23 sets, daily range): BP systolic 121–153; BP diastolic 45–83; PULSE 53–68; RESP 12–18; TEMP 36.2–43; O2SAT 90–100; BMI 44.9; BMI 50.8
[2025-04-17] MEDS: LACTATED RINGERS 1000ML 1,000 ML 100 ML IV ×2 (07:06→16:53)
--- NOTE | 2025-04-17 07:14 | EXP.ANES.CKL ---
[facility] Disclaimer: The information contained in this section may have been updated after the patient was seen, as this information can be updated by other users. Medical History Hypothyroid Onychomycosis Essential tremor Arthritis Encounter for pre-operative cardiovascular clearance Allergic rhinitis Chest pain Recurrent angina status post coronary artery bypass graft CAD (coronary artery disease) Abnormal cardiovascular stress test Family history of heart disease HLD (hyperlipidemia) Gastroesophageal reflux disease HTN (hypertension) Surgical History S/P cardiac catheterization Family History Other No significant family history Social History (Updated 04/17/25 @ 07:05 by Stephani Kim RN) Smoking Status: Never smoker alcohol intake: never substance use type: denies use current occupational status: retired Travel in the last 8 weeks?: None household members: spouse housing: house Have you lived/traveled outside US in past 30 days?: No Contact w/someone who lives/traveled outside US past 30 days?: No Exposure to someone with infectious disease in past 14 days?: No Do you have a fever (greater than 100.4 F or 38 C)?: No Have you tested positive for COVID-19?: No Exposed to someone with COVID-19 in past 14 days?: No Do you have a sore throat?: No Do you have a cough?: No Do you have any weakness?: No Are you experiencing any nausea/vomitting?: No Do you have any diarrhea?: No Are you experiencing any unusual bleeding?: No Do you have any muscle aches/pain?: No Do you have any abdominal pain?: No Are you experiencing loss of taste or smell?: No [facility] Anesthesia Checklist Patient Identification Patient Identification: Arm Band and Verbal (Name & ) Structural Data Admitted From: Home Planned Operative Procedure/s: Right total knee replacement Consent for Planned Operative Procedure(s) Verified: Yes Verified Documents: Surgical Consent NPO Status Verified Time NPO: 00:00 Chart Verification Results Verified: ECG Additional verifications Anesthesia Reactions: No Airway Assessment Mallampati Score:: Class II C-Spine Mobility Assessed: Yes TMJ Mobility Assessed: Yes Dentition: Good Dentition Neurological Assessment Level of Consciousness: Awake, Alert and Appropriate Hx Seizures: No Numbness or tingling in extremities: No Anesthesia Plan Anesthesia Risk discussed: Yes Anesthesia Plan: Verified ASA Class: II Anesthesia Type: General w/block
[2025-04-17] MEDS: CEFAZOLIN 2GM VIAL 2 GM (07:50)
[2025-04-17] MEDS: SODIUM CHLORIDE IRRIG SOLUTION 3,000 ML 200 ML IR (08:19)
--- NOTE | 2025-04-17 10:16 | XR_ITS ---
FINAL REPORT CLINICAL HISTORY: IMAGES IN THE OR total knee replacement fluor time: 0.3 2.28 mgy COMPARISON: None FINDINGS: FLUOROSCOPY LESS THAN 1 HOUR HISTORY: IntraOp total knee arthroplasty FINDINGS: Fluoroscopic guidance was provided for total knee arthroplasty. A single spot film was obtained. 0.3 minutes of fluoroscopy time were used, with a dosage of 2.28 mGy. IMPRESSION: As above. Reviewed, Interpreted and Dictated by Monty Song MD Transcribed by Blanquita Brown Authenticated and [facility]
--- NOTE | 2025-04-17 11:07 | XR_ITS ---
FINAL REPORT CLINICAL HISTORY: s/p Right TKA FINDINGS: Two views of the right knee were obtained. There is no prior exam for comparison. Postoperative changes from total knee arthroplasty. The hardware appears intact. No immediate complication seen. Expected soft tissue changes are noted. There are anterior surgical skin reece in place. IMPRESSION: Postoperative changes as above. Reviewed, Interpreted and Dictated by Teresa Tavera MD Transcribed by Quita Turner Authenticated and [facility]
--- NOTE | 2025-04-17 11:18 | EXP.ANES.I ---
[facility] Anesthesia Record Part I Anesthesia Record I Intake, IV Amount: 2,000 Hydration: Adequate Estimated blood loss (mL): 50 Urine output (mL): 0 Blood Pressure: 131/80 SaO2: 100 Pulse Rate: 54 Airway Patency: Patent Respiratory Rate: 12 Temperature: 97.2 F Patient is:: Awake and Stable Stable to PACU at:: 11:10
--- NOTE | 2025-04-17 12:06 | HMH.PHAINT1 ---
Pharmacy Intervention Comments: MEDICATION RECONCILIATION COMPLETED ON PATIENT USING EXTERNAL FILL HISTORY FROM PHARMACY. -IZZY CACERES, ROBIND
--- NOTE | 2025-04-17 12:14 | PC.NURSE ---
Patient arrived to floor at 11:43.
--- NOTE | 2025-04-17 13:45 | EXP.MED.CON ---
History of Present Illness *Admission Date: 04/17/25 *Reason for visit:: Right total knee replacement *History of present illness: Ghada England is a 70-year-old female with a medical history significant for CABG x 4 in 2020, hypertension, HFpEF, GERD, hypothyroidism who presented for a outpatient right total knee replacement and underwent a successful procedure today on 04/17/2025. Patient tolerated procedure well. On my evaluation of patient, she was lying comfortably in bed without acute distress or pain. She worked with physical therapy shortly after arriving to her for recommended home health physical therapy. She denies chest pain, shortness of breath, abdominal pain. She expressed no acute needs at this time. Pain well-controlled. Hospital medicine was consulted to medically manage patient's chronic conditions. Outpatient CBC, CMP today unremarkable for acute findings. [facility] Disclaimer: The information contained in this section may have been updated after the patient was seen, as this information can be updated by other users. Medical History Hypothyroid Onychomycosis Essential tremor Arthritis Encounter for pre-operative cardiovascular clearance Allergic rhinitis Chest pain Recurrent angina status post coronary artery bypass graft CAD (coronary artery disease) Abnormal cardiovascular stress test Family history of heart disease HLD (hyperlipidemia) Gastroesophageal reflux disease HTN (hypertension) Surgical History (Updated 04/17/25 @ 17:53 by Omero Sorenson MD) S/P cardiac catheterization Family History Other No significant family history Social History Smoking Status: Never smoker alcohol intake: never substance use type: denies use current occupational status: retired Travel in the last 8 weeks?: None household members: spouse housing: house Have you lived/traveled outside US in past 30 days?: No Contact w/someone who lives/traveled outside US past 30 days?: No Exposure to someone with infectious disease in past 14 days?: No Do you have a fever (greater than 100.4 F or 38 C)?: No Have you tested positive for COVID-19?: No Exposed to someone with COVID-19 in past 14 days?: No Do you have a sore throat?: No Do you have a cough?: No Do you have any weakness?: No Are you experiencing any nausea/vomitting?: No Do you have any diarrhea?: No Are you experiencing any unusual bleeding?: No Do you have any muscle aches/pain?: No Do you have any abdominal pain?: No Are you experiencing loss of taste or smell?: No Exam Data for Last 24 hours Vital signs and Labs for Last 24 Hours: Temp Pulse Resp BP Pulse Ox O2 Del Method O2 Flow Rate 97.6 F 53 L 16 148/65 H 91 L Room Air 6 04/17/25 12:00 04/17/25 13:00 04/17/25 13:00 04/17/25 13:00 04/17/25 13:00 04/17/25 13:00 04/17/25 11:40 I & O for Last 24 hours: Intake & Output 04/14/25 04/15/25 04/16/25 04/17/25 23:59 23:59 23:59 23:59 Intake Total 3260 / 3260 Balance 3260 / 3260 Weight 117.962 kg Constitutional Constitutional: no acute distress and obese *Routine HEENT Exam Head: Present normocephalic Eye: Present EOMI and PERRL ENT: Present mucous membranes moist *Routine Neck Exam Neck: Present supple; Absent lymphadenopathy *Routine Respiratory Exam Respiratory: Present CTA bilaterally *Routine Cardiovascular Exam Cardiovascular: Present RRR *Routine Abdominal Exam Abdominal: Present soft and normoactive bowel sounds; Absent tenderness *Routine Extremities Exam Extremities: Absent cyanosis, clubbing or edema Comments: Right knee wrapped and dressed. Neurovascularly intact. *Routine Skin Exam Skin: Present warm; Absent rash *Routine Neurological Exam Neurological: Present alert and oriented X3 Meds Home Medications and Allergies Home Medications ?Medication ?Instructions ?Recorded ?Confirmed ?Type fluticasone propionate 50 1 spray intranasal BID #16 grams 09/08/24 04/17/25 Rx mcg/actuation nasal spray,suspension (Allergy Relief (fluticasone)) cholecalciferol (vitamin D3) 50 50 mcg PO DAILY 09/18/24 04/17/25 History mcg (2,000 unit) capsule terbinafine HCl 250 mg tablet 250 mg PO DAILY 12 weeks #84 tabs 01/09/25 04/17/25 Rx cetirizine 10 mg capsule (Zyrtec) 10 mg PO DAILY #30 caps 03/13/25 04/17/25 Rx aspirin 81 mg tablet,delayed 81 mg PO DAILY 04/17/25 04/17/25 History release atorvastatin 80 mg tablet 80 mg PO HS 04/17/25 04/17/25 History famotidine 20 mg tablet 20 mg PO BID 04/17/25 04/17/25 History fluoxetine 20 mg tablet 20 mg PO 0900,1200 04/17/25 04/17/25 History furosemide 40 mg tablet 80 mg PO DAILY 04/17/25 04/17/25 History isosorbide mononitrate 30 mg 30 mg PO DAILY 04/17/25 04/17/25 History tablet,extended release 24 hr levothyroxine 150 mcg tablet 150 mcg PO DAILY 04/17/25 04/17/25 History metoprolol succinate 50 mg 50 mg PO DAILY 04/17/25 04/17/25 History tablet,extended release 24 hr spironolactone 25 mg tablet 25 mg PO DAILY 04/17/25 04/17/25 History New Prescriptions to Start Prescriptions: Allergies Allergy/AdvReac Type Severity Reaction Status Date / Time No Known Allergies Allergy Verified 04/17/25 06:51 Results Labs Labs: All other labs normal. Assessment and Plan *Assessment and plan (1) Status post total right knee replacement: Status: Acute Category: Surgical Code(s): Z96.651 - Presence of right artificial knee joint Plan Ghada England is a 70-year-old female with a medical history significant for CABG x 4 in 2019, hypertension, HFpEF, GERD, hypothyroidism who presented for a outpatient right total knee replacement and underwent a successful procedure today on 04/17/2025. Patient tolerated procedure well. On my evaluation of patient, she was lying comfortably in bed without acute distress or pain. She worked with physical therapy shortly after arriving to her for recommended home health physical therapy. She denies chest pain, shortness of breath, abdominal pain. She expressed no acute needs at this time. Pain well-controlled. Hospital medicine was consulted to medically manage patient's chronic conditions. Outpatient CBC, CMP today unremarkable for acute findings. #History of right knee osteoarthritis #Right total knee replacement ? Successful outpatient right total knee arthroplasty on 04/17/2025 by orthopedic surgery. Patient tolerated procedure well. Neurovascularly intact. ? Continue pain regimen per primary service with oxycodone 10, Toradol 15, acetaminophen 1000 mg as needed. ? DVT prophylaxis per primary service, aspirin 80 twice daily. #HFpEF ? Currently seems euvolemic. Decreased LR to 50 mL/h. ? Restart Lasix 80 mg in the morning. #Hypertension ? Hold home Imdur given concomitant opioids for pain control, continue home Lasix and spironolactone. #GERD ? Continue home famotidine. #Hypothyroidism ? Continue home levothyroxine 50 mcg. Follow-up TSH. Full code DVT prophylaxis: IPC's.
--- NOTE | 2025-04-17 14:01 | HMH.PTEV ---
Physical Therapy Evaluation Rehab PT IP Evaluation Start: 04/17/25 11:08 Freq: ONCE Status: Active Protocol: Document 04/17/25 13:52 PHORJANES (Rec: 04/17/25 14:01 PHORNE [id number]) Subjective/History History History 70 yowf adm to [facility] S/P R TKA. Subjective Subjective She reports she lives with her , no AFSANEH the home , and she is generally independent with all mobility without an AD at baseline. [facility] How much help from another person do you currently need... Turning from your None back to your side while in a flat bed without using bedrails? Moving from lying on A little back to sitting on the side of a flat bed without using bedrails? Moving to and from a A little bed to a chair ( including a wheelchair)? Standing up from a A little chair using your arms? (e.g., wheelchair, bedside chair) Walking in hospital A little room? Climbing 3-5 steps A little with a railing? Mobility Score 19 Mobility Level [place] [address] Walk 10 steps or more Mobility Calculator Rehab PT IP Eval Objective Appearance Patient Behavior Appropriate Patient Orientation Person,Place,Time Difficulty following none instructions Speech Pattern Clear Ambulation Patient Able to Yes Ambulate Ambulation Observation IP General Gait Antalgic Gait Pattern Observation Ambulation Distance 40 (feet) Ambulation Assistive Rolling Walker Device Ambulation Ability Contact Guard/Hand Hold Balance Ability to Arise Able, uses arms to help Sitting Balance Steady, safe Standing Balance Steady, wide stance Dynamic Sitting Good Balance Ability Dynamic Standing Good Balance Ability Transfers Bed Transfer Ability Contact Guard/Hand Hold Chair Transfer Contact Guard/Hand Hold Ability Sit to Stand Bed Contact Guard/Hand Hold Transfer Ability Sit to Stand Chair Contact Guard/Hand Hold Transfer Ability Rehab PT IP prob,goals,plan Problems Date of Evaluation: 04/17/25 PT IP Problems Bed Mobility,Transfers,Gait Rehab Potential Rehab Potential Good Equipment Needs Assistive Devices Rolling / Wheeled Walker Plan PT Intervention Plan Bed Mobility,Transfers,Gait,Self care,Therapeutic Exercise PT Plan Frequency BID Duration LOS Discharge Goals Bed Transfer Ability Supervision/Stand by Sit to Stand Chair Supervision/Stand by Transfer Ability Ambulation Assistive Rolling Walker Device Ambulation Distance 50 (feet) Discharge Plan PT Discharge Plan Pt is currently appropriate to return home once medically stable for d/c. Skilled acute therapy services are indicated to increase general strength, improve transfers, and increase ambulation ability in order to aid pt improvement in QOL. Eval Complexity Eval Charge Codes 23543 - Moderate Complexity PHYSICIAN CERTIFICATION: I certify the specified therapy services for Ghada England are required, authorized, and reviewed every 30 days.
[2025-04-17] MEDS: KETOROLAC 30MG/ML VIAL 15 MG IV ×2 (15:07→20:53)
--- NOTE | 2025-04-17 15:15 | P.OP_ITS ---
Date of procedure: 04/17/25 Pre-op Diagnosis:: End-stage osteoarthritis right knee Post-op Diagnosis:: Same Procedure performed:: Right total knee arthroplasty Surgeon:: Benjamin Carcamo DO Product Engineer(s):: Anel Razo PA-C TRANSLATOR/INTERPRETER:: Jeffrey Abad Anesthesia: GETA and regional Estimated blood loss (mL): 50 Operative findings:: Severe end-stage osteoarthritis Operative note:: Patient identified preoperatively. Right knee marked with yes my initials. Transferred operative suite placed upon operating bed. General anesthesia ministered airway secured. Right lower extremity prepped draped normal sterile fashion. Once prepped and draped final operative timeout performed to identify proper patient procedure and extremity. Everyone involved in the case agreed. Is no counter indication beginning. Did receive preoperative antibiotics. Marking pen was used to mikal the planned midline incision of the knee. Esmarch was used to exsanguinate the extremity pneumatic tourniquet inflated to 300 mmHg. Skin knife is used incise the skin dissection taken down to identify the capsule which was marked for future closure and then a standard medial parapatellar approach was utilized. Patella was everted. Knee was flexed. Anterior horns of medial lateral meniscus sacrificed ACL sacrificed retractors were placed tensions brought to the femur. Initially intramedullary renata was selected and the bone was soft on the posterior and skive posteriorly through the notch. X-ray was brought into confirm there was no cortical fracture. And the my knee distal femoral cut guide was utilized distal femoral cut was made and size three 4-in-1 cutting block was then placed anterior and posterior cuts were made anterior and posterior chamfer cuts were made size 3 trial was imp acted in place and lug holes drilled. Attention was then brought to the tibia the tibia was subluxed anteriorly the remainder of the medial and lateral meniscus removed retractors placed size 3 tibial my knee cutting guide was utilized and pinned into place osteotomy was performed per her planned proximal tibial osteotomy with a size 3 plate was then selected and pinned into place the reamer was utilized for reaming followed by the broach then the femoral trial was also placed x-ray was taken into the show good range of motion stable prosthesis. Trial from size 10 up to size 12 was selected 12 was the most appropriate size with flexion extension to give stable so therefore the final implants were opened on the back table size 3 femur for 3 tibia 12 mm insert the patella was evaluated was full cartilage still present on the patella resurfacing was not indicated After the trials were removed irrigation was performed final implants opened on the back table cement mixed and cemented in the tibia impacted the poly and then cemented in the femur right leg in extension remove excess cement allow cement to cure. Knee was taken through range of motion found to be stable. The capsule was closed with #1 STRATAFIX suture deep layers 0 Vicryl subcutaneous with 2-0 Vicryl surgical clips in the skin for closure Condition: stable Disposition: PACU Complications:: None apparent
[2025-04-17] MEDS: OXYCODONE 5MG IMMEDIATE RELEASE TABLET 10 MG PO ×2 (16:06→22:42)
[2025-04-17 17:53] LABS: POC Glucose,Bedside 102 gm/dL (70-110)
[2025-04-17] MEDS: ACETAMINOPHEN 500MG TAB 1000 MG PO (20:54)
[2025-04-17] MEDS: FAMOTIDINE 20MG TABLET 20 MG PO (20:54)
[2025-04-17] MEDS: ASPIRIN EC 81MG TABLET 81 MG PO (20:55)
[2025-04-18] VITALS (12 sets, daily range): BP systolic 123–145; BP diastolic 49–84; PULSE 53–58; RESP 14–18; TEMP 36.1–36.8; O2SAT 95–100; BMI 51.0
[2025-04-18] MEDS: KETOROLAC 30MG/ML VIAL 15 MG IV (03:36)
[2025-04-18] MEDS: LACTATED RINGERS 1000ML 1,000 ML 50 ML IV (03:39)
[2025-04-18] MEDS: OXYCODONE 5MG IMMEDIATE RELEASE TABLET 10 MG PO ×2 (05:02→11:02)
--- NOTE | 2025-04-18 05:18 | PC.NURSE ---
Pt medicated PRN per JUL. LR @ 50 ml/hr. Pt placed on 2L NC d/t O2 sat decreasing to 80's while pt was sleeping. No other changes.
[2025-04-18 05:52] LABS: Hematocrit 40.1 % (37.0-47.0); Hemoglobin 11.9 g/dL (12.2-16.2); Immature Granulocytes % 0.2 %; Mean Corpuscular HGB Conc 29.7 g/dL (31.8-35.4); Mean Corpuscular Hemoglobin 27.5 pg (27.0-31.2); Mean Corpuscular Volume 92.6 fl (81-99); Nucleated Red Blood Cells % 0 %; Platelet Count 204 K/mm3 (142-424); Red Blood Count 4.33 M/mm3 (4.20-5.40); Red Cell Distribution Width-SD 47.8 fL; White Blood Count 11.2 K/mm3 (4.8-10.8)
[2025-04-18 06:03] LABS: Chloride 102 mmol/L (98-107); Potassium 5.0 mmoL/L (3.5-5.1); Sodium 140 mmol/L (136-145)
[2025-04-18 06:06] LABS: Anion Gap 15.0 mEq/L (5-15); Blood Urea Nitrogen 20 mg/dl (7-17); Calcium 8.5 mg/dl (8.4-10.2); Carbon Dioxide 28 mmol/L (22.0-30.0); Creatinine Clearance Estimated 37 mL/min (50-200); Creatinine,Serum 0.90 mg/dl (0.52-1.04); Estimated Glomerular Filt Rate 62 ml/min (>60); GFR (African American) 75 ML/MIN (>60); Glucose 113 mg/dl (74-100)
--- NOTE | 2025-04-18 08:07 | EXP.HPDC ---
General Admission date:: 04/17/25 Discharge date: 04/18/25 *Admission Date: 04/17/25 *Chief complaint: R knee osteoarthritis s/p R TKA *History of present illness: Patient was seen as outpatient with complaint of R knee pain, with inability to perform activities of daily living. Imaging confirms diagnosis of osteoarthritis. Patient was consented, with discussion of risk benefits and alternatives for R TKA with Dr. Carcamo scheduled for 04/17/25. Patient was admitted postop to orthopedic service. [facility] Disclaimer: The information contained in this section may have been updated after the patient was seen, as this information can be updated by other users. Medical History Hypothyroid Onychomycosis Essential tremor Arthritis Encounter for pre-operative cardiovascular clearance Allergic rhinitis Chest pain Recurrent angina status post coronary artery bypass graft CAD (coronary artery disease) Abnormal cardiovascular stress test Family history of heart disease HLD (hyperlipidemia) Gastroesophageal reflux disease HTN (hypertension) Surgical History (Updated 04/17/25 @ 17:53 by Omero Sorenson MD) S/P cardiac catheterization Family History Other No significant family history Social History Smoking Status: Never smoker alcohol intake: never substance use type: denies use current occupational status: retired Travel in the last 8 weeks?: None household members: spouse housing: house Have you lived/traveled outside [place] in past 30 days?: No Contact w/someone who lives/traveled outside US past 30 days?: No Exposure to someone with infectious disease in past 14 days?: No Do you have a fever (greater than 100.4 F or 38 C)?: No Have you tested positive for COVID-19?: No Exposed to someone with COVID-19 in past 14 days?: No Do you have a sore throat?: No Do you have a cough?: No Do you have any weakness?: No Are you experiencing any nausea/vomitting?: No Do you have any diarrhea?: No Are you experiencing any unusual bleeding?: No Do you have any muscle aches/pain?: No Do you have any abdominal pain?: No Are you experiencing loss of taste or smell?: No Other Medical History Have you received the Flu Vaccine for this season: Yes Have you received the Pneumonia Vaccine: Yes Exam Data for Last 24 hours Vital signs and Labs for Last 24 Hours: Temp Pulse Resp BP Pulse Ox O2 Del Method O2 Flow Rate 98.2 F 58 L 16 131/58 L 97 Room Air 2 04/17/25 23:47 04/18/25 04:17 04/18/25 04:17 04/18/25 04:17 04/18/25 04:17 04/18/25 07:45 04/18/25 06:55 Laboratory Results - last 24 hr 04/17/25 06:57: POC Glucose 102 04/18/25 05:18: WBC 11.2 H, RBC 4.33, Hgb 11.9 L, Hct 40.1, MCV 92.6, MCH 27.5, MCHC 29.7 L, RDW 13.9, Plt Count 204, MPV 9.8, Neut % (Auto) 75.6, Lymph % (Auto) 12.4, [place] % (Auto) 11.2 H, Eos % (Auto) 0.0 L, Baso % (Auto) 0.6, Neut # (Auto) 8.5 H, Lymph # (Auto) 1.4, [place] # (Auto) 1.3 H, Eos # (Auto) 0.0, Baso # (Auto) 0.1, Sodium 140, Potassium 5.0, Chloride 102, Carbon Dioxide 28, Anion Gap 15.0, BUN 20 H, Creatinine 0.90, Estimated Creat Clear 37, Estimated GFR 62, Est GFR ( Amer) 75, Glucose 113 H, Calcium 8.5 I & O for Last 24 hours: Intake & Output 04/15/25 04/16/25 04/17/25 04/18/25 23:59 23:59 23:59 23:59 Intake Total 3840 / 3840 2149.167 / 2149.167 Output Total 0 / 0 800 / 800 Balance 3840 / 3840 1349.167 / 1349.167 Weight 117.962 kg 117.824 kg *Routine HEENT Exam Head: Present normocephalic Eye: Present EOMI ENT: Present mucous membranes moist *Routine Respiratory Exam Respiratory: Present normal respiratory effort *Routine Cardiovascular Exam Cardiovascular: Present other *Routine Abdominal Exam Abdominal: Present soft *Routine Rectal Exam Rectal:: deferred *Routine Genitalia Exam Genitalia:: deferred *Routine Extremities Exam Comments: R knee: Dressing C/D/I. NVID with <2 sec cap refill, +EHL/FHL, SILT 1st DWS/PA. Meds Home Medications and Allergies Home Medications ?Medication ?Instructions ?Recorded ?Confirmed ?Type fluticasone propionate 50 1 spray intranasal BID #16 grams 09/08/24 04/17/25 Rx mcg/actuation nasal spray,suspension (Allergy Relief (fluticasone)) cholecalciferol (vitamin D3) 50 50 mcg PO DAILY 09/18/24 04/17/25 History mcg (2,000 unit) capsule terbinafine HCl 250 mg tablet 250 mg PO DAILY 12 weeks #84 tabs 01/09/25 04/17/25 Rx cetirizine 10 mg capsule (Zyrtec) 10 mg PO DAILY #30 caps 03/13/25 04/17/25 Rx aspirin 81 mg tablet,delayed 81 mg PO DAILY 04/17/25 04/17/25 History release atorvastatin 80 mg tablet 80 mg PO HS 04/17/25 04/17/25 History famotidine 20 mg tablet 20 mg PO BID 04/17/25 04/17/25 History fluoxetine 20 mg tablet 20 mg PO 0900,1200 04/17/25 04/17/25 History furosemide 40 mg tablet 80 mg PO DAILY 04/17/25 04/17/25 History isosorbide mononitrate 30 mg 30 mg PO DAILY 04/17/25 04/17/25 History tablet,extended release 24 hr levothyroxine 150 mcg tablet 150 mcg PO DAILY 04/17/25 04/17/25 History metoprolol succinate 50 mg 50 mg PO DAILY 04/17/25 04/17/25 History tablet,extended release 24 hr spironolactone 25 mg tablet 25 mg PO DAILY 04/17/25 04/17/25 History New Prescriptions to Start Prescriptions: Allergies Allergy/AdvReac Type Severity Reaction Status Date / Time No Known Allergies Allergy Verified 04/17/25 06:51 Hospital Course Hospital Course Hospital Course: Patient underwent a R TKA with Dr. Carcamo on 04/17/25 with postop admission to orthopedic service after being transferred from PACU in stable condition to inpatient floor. Patient underwent physical therapy, with labs and vitals taken per floor protocol. Inpatient stay was uneventful, and patient was discharged on postop day 1 with labs and vitals stable, and recommendations for discharge by physical therapy. Case management was involved in discharge planning, and patient and family understood and agreed with the recommendations. Patient was discharged in stable condition with all medications and outpatient orders in place at time of discharge. Results Data Completed and Pending Labs on day of discharge: Labs from last 24 hours 04/18/25 04/17/25 05:18 06:57 WBC 11.2 H RBC 4.33 Hgb 11.9 L Hct 40.1 MCV 92.6 MCH 27.5 MCHC 29.7 L RDW 13.9 Plt Count 204 MPV 9.8 Neut % (Auto) 75.6 Lymph % (Auto) 12.4 [place] % (Auto) 11.2 H Eos % (Auto) 0.0 L Baso % (Auto) 0.6 Neut # (Auto) 8.5 H Lymph # (Auto) 1.4 [place] # (Auto) 1.3 H Eos # (Auto) 0.0 Baso # (Auto) 0.1 Sodium 140 Potassium 5.0 Chloride 102 Carbon Dioxide 28 Anion Gap 15.0 BUN 20 H Creatinine 0.90 Estimated Creat Clear 37 Estimated GFR 62 Est GFR ( Amer) 75 Glucose 113 H POC Glucose 102 Calcium 8.5 DS: Diagnosis Discharge Diagnosis (1) Status post total right knee replacement: Status: Acute Code(s): Z96.651 - Presence of right artificial knee joint Discharge Plan Disposition Patient Disposition: Home, Self-Care Condition: Good Follow up Plan Prescriptions/Medication Reconciliation: No Action cholecalciferol (vitamin D3) 50 mcg (2,000 unit) capsule 50 mcg PO DAILY fluticasone propionate [Allergy Relief (fluticasone)] 50 mcg/actuation spray,suspension 1 spray intranasal BID Qty: 16 2RF Rx Instructions: administer into each nostril 2x/day terbinafine HCl 250 mg tablet 250 mg PO DAILY 84 Days Qty: 84 0RF Zyrtec 10 mg capsule 10 mg PO DAILY Qty: 30 2RF furosemide 40 mg tablet 80 mg PO DAILY atorvastatin 80 mg tablet 80 mg PO HS metoprolol succinate 50 mg tablet extended release 24 hr 50 mg PO DAILY isosorbide mononitrate 30 mg tablet extended release 24 hr 30 mg PO DAILY aspirin 81 mg tablet,delayed release (DR/EC) 81 mg PO DAILY spironolactone 25 mg tablet 25 mg PO DAILY famotidine 20 mg tablet 20 mg PO BID fluoxetine 20 mg tablet 20 mg PO 0900,1200 levothyroxine 150 mcg tablet 150 mcg PO DAILY Problem Reconciliation Problems Reviewed?: Yes Patient Discharge Instructions ACTIVITY: Continue current activity, Ambulate as tolerated and Other DIET: advance to your usual diet Additional Instructions: PWB to RLE using RW for ambulation Print Language: Cymro Providers Primary Care Provider: Chito Ramírez Provider: Omero Sorenson Attending Provider: Benjamin Carcamo
[2025-04-18] MEDS: METOPROLOL SUCCINATE XL 50MG TABLET 50 MG PO (08:29)
[2025-04-18] MEDS: FLUOXETINE 20MG CAPSULE 20 MG PO ×2 (08:29→13:30)
[2025-04-18] MEDS: ASPIRIN EC 81MG TABLET 81 MG PO (08:29)
[2025-04-18] MEDS: FUROSEMIDE 80 MG TABLET PO (08:29)
[2025-04-18] MEDS: SPIRONOLACTONE 25MG TABLET 25 MG PO (08:29)
[2025-04-18] MEDS: LEVOTHYROXINE 150MCG (0.15MG)TAB 150 MCG PO (08:29)
--- NOTE | 2025-04-18 09:10 | SW/DCPLANNER ---
Addendum entered by Peyton Jasso 04/18/25 10:24: [facility] is able to accept patient. Divina Hernandez Addendum entered by Peyton Jasso 04/18/25 09:21: I faxed patient's information to [facility]. Will update once i hear back if they can accept patient or not. Divina Hernandez Original Note: I spoke w/ patient regarding plans once medically stable for discharge. PT evaluated patient and recommended home health services or outpatient PT. Patient voiced that she prefers home health services w/ no agency preference. CM will set up home health services at time of discharge. Discharge date is unknown at this time. Patient stated that she does have a rollator at home and does not have any other needs. CM will continue to follow up.
--- NOTE | 2025-04-18 11:19 | PC.NURSE ---
contacted ortho office regarding needing med rec, appts and new prescriptions done before pt can be dc. office staff said they would pass along the message to providers.
--- NOTE | 2025-04-18 11:42 | P.PN_ITS ---
Subjective *Date: 04/18/25 *Time: 11:42 Interval history: Patient does seem a little sedated today, would recommend discontinuing muscle relaxants on discharge and walk test with physical therapy before discharge. Exam Data for Last 24 hours Vital signs and Labs for Last 24 Hours: Temp Pulse Resp BP Pulse Ox O2 Del Method O2 Flow Rate 98.2 F 53 L 16 125/52 L 95 Room Air 2 04/18/25 08:00 04/18/25 08:30 04/18/25 04:17 04/18/25 08:00 04/18/25 08:30 04/18/25 11:00 04/18/25 06:55 Laboratory Results - last 24 hr 04/17/25 06:57: POC Glucose 102 04/18/25 05:18: WBC 11.2 H, RBC 4.33, Hgb 11.9 L, Hct 40.1, MCV 92.6, MCH 27.5, MCHC 29.7 L, RDW 13.9, Plt Count 204, MPV 9.8, Neut % (Auto) 75.6, Lymph % (Auto) 12.4, [place] % (Auto) 11.2 H, Eos % (Auto) 0.0 L, Baso % (Auto) 0.6, Neut # (Auto) 8.5 H, Lymph # (Auto) 1.4, [place] # (Auto) 1.3 H, Eos # (Auto) 0.0, Baso # (Auto) 0.1, Sodium 140, Potassium 5.0, Chloride 102, Carbon Dioxide 28, Anion Gap 15.0, BUN 20 H, Creatinine 0.90, Estimated Creat Clear 37, Estimated GFR 62, Est GFR ( Amer) 75, Glucose 113 H, Calcium 8.5 Temp Pulse Resp BP Pulse Ox O2 Del Method O2 Flow Rate 97.6 F 53 L 16 148/65 H 91 L Room Air 6 04/17/25 12:00 04/17/25 13:00 04/17/25 13:00 04/17/25 13:00 04/17/25 13:00 04/17/25 13:00 04/17/25 11:40 I & O for Last 24 hours: Intake & Output 04/15/25 04/16/25 04/17/25 04/18/25 23:59 23:59 23:59 23:59 Intake Total 3840 / 3840 2149.167 / 2149.167 Output Total 0 / 0 800 / 800 Balance 3840 / 3840 1349.167 / 1349.167 Weight 117.962 kg 117.824 kg Intake & Output 04/14/25 04/15/25 04/16/25 04/17/25 23:59 23:59 23:59 23:59 Intake Total 3260 / 3260 Balance 3260 / 3260 Weight 117.962 kg Constitutional Constitutional: no acute distress and obese *Routine HEENT Exam Head: Present normocephalic Eye: Present EOMI and PERRL ENT: Present mucous membranes moist *Routine Neck Exam Neck: Present supple; Absent lymphadenopathy *Routine Respiratory Exam Respiratory: Present CTA bilaterally *Routine Cardiovascular Exam Cardiovascular: Present RRR *Routine Abdominal Exam Abdominal: Present soft and normoactive bowel sounds; Absent tenderness *Routine Extremities Exam Extremities: Absent cyanosis, clubbing or edema Comments: Right knee wrapped and dressed. Neurovascularly intact. *Routine Skin Exam Skin: Present warm; Absent rash *Routine Neurological Exam Neurological: Present alert and oriented X3 Assessment and Plan *Assessment and plan (1) Status post total right knee replacement: Status: Acute Category: Surgical Code(s): Z96.651 - Presence of right artificial knee joint Plan Ghada England is a 70-year-old female with a medical history significant for CABG x 4 in 2019, hypertension, HFpEF, GERD, hypothyroidism who presented for a outpatient right total knee replacement and underwent a successful procedure today on 04/17/2025. Patient tolerated procedure well. On my evaluation of patient, she was lying comfortably in bed without acute distress or pain. She worked with physical therapy shortly after arriving to her for recommended home health physical therapy. She denies chest pain, shortness of breath, abdominal pain. She expressed no acute needs at this time. Pain well-controlled. Hospital medicine was consulted to medically manage patient's chronic conditions. Outpatient CBC, CMP today unremarkable for acute findings. #History of right knee osteoarthritis #Right total knee replacement ? Successful outpatient right total knee arthroplasty on 04/17/2025 by orthopedic surgery. Patient tolerated procedure well. Neurovascularly intact. ? Patient does seem a little sedated today, would recommend discontinuing muscle relaxants on discharge and walk test with physical therapy before discharge. ? DVT prophylaxis per primary service, aspirin 81 twice daily. #HFpEF ? Currently seems euvolemic. Discontinued LR maintenance fluids. ? Continue Lasix 80 mg daily. #Hypertension ? Hold home Imdur given concomitant opioids for pain control, continue home Lasix and spironolactone. #GERD ? Continue home famotidine. #Hypothyroidism ? Continue home levothyroxine 50 mcg. TSH normal. Thank you for involving hospital medicine for patient's care. Will sign off at this time as patient is discharging. Please call with any questions.
--- NOTE | 2025-04-18 11:45 | PC.NURSE ---
per hospitalist, there is concern about over sedation and fall risk due to pt behavior during morning rounds. He requested that PT eval pt and assess for fall risk before being discharge. PT has been contacted
--- NOTE | 2025-04-18 12:49 | EXP.ANES.II ---
[facility] Anesthesia Record Part II Anesthesia Record Part II Discharge Time: 11:40 Destination: Intensive Care Unit PACU nurse assessment reviewed?: Yes Patient Condition:: Good Anesthesia Complications:: None Swallowing reflex intact?: Yes Airway Patency: Patent Cyanosis?: No Blood Pressure: 145/62 SaO2: 100 Respiratory Rate: 18 Pulse Rate: 56 Temperature: 97.0 F Mental Status: Alert & Oriented Pain level:: 0 Nausea and/or vomitting:: None Intake, IV Amount: 0 Hydration: Adequate
[2025-04-18 14:28] LABS: Microscopic, Urine URINE MICROSCOPIC (MICROSCOPIC)
--- NOTE | 2025-04-18 14:40 | PC.NURSE ---
hospitalist ordered urine culture. urine sent. said to wait to DC until we have results
[2025-04-18 15:19] LABS: Bilirubin,Urine Negative (Negative); Color,Urine YELLOW (Yellow); Glucose,Urine (UA) Negative (Negative); Ketones,Urine Negative (Negative); Leukocyte Esterase,Urine Negative (Negative); PH,Urine 6.0 (5.0-8.5); Protein,Urine Negative (Negative); Specific Gravity, Urine >= 1.030 (1.005-1.030); Urobilinogen,Urine 0.2 EU/dl (0.2)
[2025-04-18 16:16] LABS: Bacteria,Urine 1+ /lpf
--- NOTE | 2025-04-19 09:53 | SW/DCPLANNER ---
Patient was readmitted back into the hospital due to a fall. I will do a follow up phone call when patient is dc from this stay. Divina Hernandez
[2025-04-19 16:08] LABS: POC Glucose,Bedside 118 gm/dL (70-110)
== END 2025-04-18 17:50 | disposition home health service (06) ==
LOC: ICU 11:56
PROVIDERS: Admitting Provider Student in an Organized Health Care Education/Training Program; PCP Family Medicine; Visit Provider Orthopaedic Surgery
PROC: (CPT 27447; principal; 2025-04-17 07:30)
DX: M17.11 Unilateral primary osteoarthritis, right knee (principal); I25.10 Atherosclerotic heart disease of native coronary artery without angina pectoris; E78.5 Hyperlipidemia, unspecified; I10 Essential (primary) hypertension; E03.9 Hypothyroidism, unspecified; Z82.49 Family history of ischemic heart disease and other diseases of the circulatory system; K21.9 Gastro-esophageal reflux disease without esophagitis; Z79.899 Other long term (current) drug therapy; Z79.82 Long term (current) use of aspirin; Z79.890 Hormone replacement therapy
CPT/HCPCS: 27447; 73560; 80048; 81001; 82962; 85025; 96374; 97162; 97530; C1776; G0378; J0690; J1596; J1885; J2003; J2250; J2405; J2704; J2710; J3010; J7050; J7120

== ENCOUNTER 2025-04-19 04:27 | Observation (INO) | payer MEDICARE, SELFPAY ==
[2025-04-19] VITALS (16 sets, daily range): BP systolic 108–148; BP diastolic 40–55; PULSE 54–65; RESP 16–18; TEMP 36.5–36.6; O2SAT 85–99; BMI 46.3; BMI 48.7
--- NOTE | 2025-04-19 04:22 | HMH.EDGENADL ---
Discharge Plan Disposition Patient Disposition: Admitted Prescriptions Prescriptions: No Action cholecalciferol (vitamin D3) 50 mcg (2,000 unit) capsule 50 mcg PO DAILY fluticasone propionate [Allergy Relief (fluticasone)] 50 mcg/actuation spray,suspension 1 spray intranasal BID Qty: 16 2RF Rx Instructions: administer into each nostril 2x/day terbinafine HCl 250 mg tablet 250 mg PO DAILY 84 Days Qty: 84 0RF Zyrtec 10 mg capsule 10 mg PO DAILY Qty: 30 2RF furosemide 40 mg tablet 80 mg PO DAILY atorvastatin 80 mg tablet 80 mg PO HS metoprolol succinate 50 mg tablet extended release 24 hr 50 mg PO DAILY isosorbide mononitrate 30 mg tablet extended release 24 hr 30 mg PO DAILY spironolactone 25 mg tablet 25 mg PO DAILY famotidine 20 mg tablet 20 mg PO BID fluoxetine 20 mg tablet 20 mg PO 0900,1200 levothyroxine 150 mcg tablet 150 mcg PO DAILY oxycodone-acetaminophen 10-325 mg tablet 1 tab PO Q4H PRN (Reason: post op pain) Qty: 42 0RF aspirin 81 mg tablet 81 mg PO BID Qty: 60 0RF Referrals Follow up/Referrals: Chito Ramírez MD [Primary Care Provider, Family Practice] - See instructions Clinical Impressions Clinical Impression: Weakness, Post-operative pain, Hypoxia Print Language Print Language: Bengali Discharge ED Provider: Davey Wayne Adult HPI General Chief complaint: PAIN Stated complaint: pain Time Seen by Provider: 04/19/25 04:31 History of Present Illness HPI narrative: 70-year-old female with history of right total knee replacement yesterday presents because she cannot care for herself at home. She reports that she was trying to get back and forth between the couch and the portable toilet and could not. She slid between them. Did not hit her head, hit her knee or sustain any trauma. She just is not capable to take care of herself at home after the surgery. She does report 10 of 10 pain in the knee, her last dose of pain meds was 3 hours ago. She denies any chest pain abdominal pain shortness of breath or other symptoms. Related Data Home Medications ?Medication ?Instructions ?Recorded ?Confirmed cholecalciferol (vitamin D3) 50 50 mcg PO DAILY 09/18/24 04/17/25 mcg (2,000 unit) capsule atorvastatin 80 mg tablet 80 mg PO HS 04/17/25 04/17/25 famotidine 20 mg tablet 20 mg PO BID 04/17/25 04/17/25 fluoxetine 20 mg tablet 20 mg PO 0900,1200 04/17/25 04/17/25 furosemide 40 mg tablet 80 mg PO DAILY 04/17/25 04/17/25 isosorbide mononitrate 30 mg 30 mg PO DAILY 04/17/25 04/17/25 tablet,extended release 24 hr levothyroxine 150 mcg tablet 150 mcg PO DAILY 04/17/25 04/17/25 metoprolol succinate 50 mg 50 mg PO DAILY 04/17/25 04/17/25 tablet,extended release 24 hr spironolactone 25 mg tablet 25 mg PO DAILY 04/17/25 04/17/25 Previous Rx's ?Medication ?Instructions ?Recorded fluticasone propionate 50 1 spray intranasal BID #16 grams 09/08/24 mcg/actuation nasal spray,suspension (Allergy Relief (fluticasone)) terbinafine HCl 250 mg tablet 250 mg PO DAILY 12 weeks #84 tabs 01/09/25 cetirizine 10 mg capsule (Zyrtec) 10 mg PO DAILY #30 caps 03/13/25 aspirin 81 mg tablet 81 mg PO BID #60 tabs 04/18/25 oxycodone-acetaminophen 10 mg-325 1 tab PO Q4H PRN post op pain #42 04/18/25 mg tablet tabs Allergies Allergy/AdvReac Type Severity Reaction Status Date / Time No Known Allergies Allergy Verified 04/17/25 06:51 [facility] Disclaimer: The information contained in this section may have been updated after the patient was seen, as this information can be updated by other users. Medical History (Updated 04/19/25 @ 05:13 by Davey Wayne MD) Hypothyroid Onychomycosis Essential tremor Arthritis Encounter for pre-operative cardiovascular clearance Allergic rhinitis Chest pain Recurrent angina status post coronary artery bypass graft CAD (coronary artery disease) Abnormal cardiovascular stress test Family history of heart disease HLD (hyperlipidemia) Gastroesophageal reflux disease HTN (hypertension) Surgical History (Updated 04/17/25 @ 17:53 by Omero Sorenson MD) S/P cardiac catheterization Family History Other No significant family history Social History Smoking Status: Never smoker alcohol intake: never substance use type: denies use current occupational status: retired Travel in the last 8 weeks?: None household members: spouse housing: house Other Medical History Have you received the Flu Vaccine for this season: No Have you received the Pneumonia Vaccine: No ROS Obtained: Yes All systems reviewed & no additional complaints except as documented Physical Exam General General appearance: alert and in no apparent distress Head Head exam: atraumatic and normocephalic Eye Eye exam: Present normal appearance, PERRL and EOMI ENT ENT exam: Present normal oropharynx and normal external ear exam Neck Neck exam: Present normal inspection and full ROM Chest Chest inspection: Present normal inspection and symmetric chest wall rise; Absent tenderness Respiratory Respiratory exam: Present normal lung sounds bilaterally; Absent respiratory distress Cardiovascular Cardiovascular exam: Present regular rate and normal rhythm Abdominal Exam Abdominal exam: Present soft; Absent distention, tenderness or guarding Extremities Exam Extremities exam: Present other (Right lower extremity wrapped in an Papito wrap. Given recent surgery, I did not take down the dressings.); Absent edema or joint swelling Back Exam Back exam: Present normal inspection; Absent tenderness Neurological Exam Neurological exam: Present alert and oriented X3; Absent motor sensory deficit Psychiatric Psychiatric exam: Present normal affect and normal mood Skin Skin exam: Present warm, dry and normal color Lymphatic Lymphatic Findings: no adenopathy Medical Decision Making Medical Records Medical records reviewed: Yes I reviewed the patient's medical records. Screening: Per USPSTF and CDC recommendations, given the prevalence of disease in our region, it is our hospital?s policy to screen for HIV and viral Hepatitis for all patients aged 18 and over and those with ongoing risk factors. Ceasar Inquiry Pt receiving controlled substance: No Ceasar was queried for this patient: No Vital Signs: 04/19/25 04:23 04/19/25 04:37 Temperature 97.9 F Temperature Source Oral Pulse Rate [Left Radial] 65 Respiratory Rate 18 Blood Pressure [Right Arm] 108/40 L Blood Pressure Mean [Right Arm] 62 Blood Pressure Source [Right Arm] Automatic Cuff 02 Sat by Pulse Oximetry 93 L 85 L Oxygen Delivery Method Room Air Nasal Cannula Oxygen Flow Rate (LPM) 2 Lab Data Lab results reviewed: Yes I reviewed the patient's lab results. Lab Results 04/19/25 04:33: WBC 13.8 H, RBC 4.09 L, Hgb 11.5 L, Hct 36.9 L, MCV 90.2, MCH 28.1, MCHC 31.2 L, RDW 14.2, Plt Count 194, MPV 9.7, Neut % (Auto) 81.0 H, Lymph % (Auto) 7.0 L, [place] % (Auto) 11.1 H, Eos % (Auto) 0.0 L, Baso % (Auto) 0.4, Neut # (Auto) 11.2 H, Lymph # (Auto) 1.0, [place] # (Auto) 1.5 H, Eos # (Auto) 0.0, Baso # (Auto) 0.1, Sodium 138, Potassium 4.3, Chloride 99, Carbon Dioxide 30, Anion Gap 13.3, BUN 18 H, Creatinine 1.00, Estimated Creat Clear 41, Estimated GFR 55 L, Est GFR ( Amer) 67, Glucose 131 H, Calcium 8.6, Total Bilirubin 0.7, AST 25, ALT 16, Alkaline Phosphatase 81, Total Protein 7.0, Albumin 3.8, Globulin 3.2, Albumin/Globulin Ratio 1.2 04/19/25 04:33 12 04:33 Orders (Tests/Meds): ED MEDICATIONS Discontinued Medications Generic Name Dose Route Start Last Admin Trade Name Freq PRN Reason Stop Dose Admin Oxycodone HCl 5 mg 04/19/25 04:30 12 04:41 Oxycodone 5mg Immediate Release Tablet PO 04/19/25 04:31 5 mg ONCE ONE Administration ORDERS Category Date Time Status CBC w/Auto Diff [Complete Blood Count Auto Diff] Stat Lab 04/19/25 04:33 Completed CMP [Comprehensive Metabolic Panel] Stat Lab 04/19/25 04:33 Completed HIV Combo Stat Lab 04/19/25 04:33 Received Hepatitis C Ab Qual. W/ RFX Stat Lab 04/19/25 04:33 Received Medical Decision Narrative: 70-year-old female with history of right total knee placement yesterday, coronary artery disease hypertension hyperlipidemia presents because she is unable to care for herself at home after surgery. History was obtained via interactive discussion with patient, EMS, chart review. On arrival, patient is [afebrile, hemodynamically stable, alert, oriented x4, GCS 15], moving all extremities spontaneously. Patient is mildly hypoxic satting high 80s on room air. Placed on 2 L nasal cannula full physical exam performed and significant for clear lungs bilaterally, no abdominal tenderness, right lower extremity in an Papito wrap, intact distal capillary. Differential includes but is not limited to postoperative pain, anemia,. Patient was given oxycodone for symptomatic management and correction of underlying abnormalities. Workup initiated including basic labs. On re-evaluation, patient [remains afebrile, HD stable.] Laboratory workup independently interpreted by me and significant for no significant laboratory abnormality. Radiographs of the knee were considered but given she sustained no trauma to the knee I do not think that is necessary. Given patient history, exam and workup, patient's presentation most likely represents postoperative pain and debility as well as mild hypoxia. Interactive discussion was had with the hospitalist on-call for admission.. Procedures Risk/Benefits of Procedure(s) Were Explained: Yes Critical Care Critical Care Time Critical Care Time: No
[2025-04-19] MEDS: OXYCODONE 5MG IMMEDIATE RELEASE TABLET 5 MG PO (04:41)
[2025-04-19 04:44] LABS: Hematocrit 36.9 % (37.0-47.0); Hemoglobin 11.5 g/dL (12.2-16.2); Immature Granulocytes % 0.5 %; Mean Corpuscular HGB Conc 31.2 g/dL (31.8-35.4); Mean Corpuscular Hemoglobin 28.1 pg (27.0-31.2); Mean Corpuscular Volume 90.2 fl (81-99); Nucleated Red Blood Cells % 0 %; Platelet Count 194 K/mm3 (142-424); Red Blood Count 4.09 M/mm3 (4.20-5.40); Red Cell Distribution Width-SD 46.8 fL; White Blood Count 13.8 K/mm3 (4.8-10.8)
[2025-04-19 04:50] LABS: Albumin Level 3.8 g/dl (3.5-5.0); Chloride 99 mmol/L (98-107); Potassium 4.3 mmoL/L (3.5-5.1); Sodium 138 mmol/L (136-145)
[2025-04-19 04:52] LABS: Blood Urea Nitrogen 18 mg/dl (7-17); Creatinine Clearance Estimated 41 mL/min (50-200); Creatinine,Serum 1.00 mg/dl (0.52-1.04); Estimated Glomerular Filt Rate 55 ml/min (>60); GFR (African American) 67 ML/MIN (>60)
[2025-04-19 04:53] LABS: Alanine Aminotransferase 16 U/L (12-78); Albumin/Globulin Ratio 1.2 (1.1-1.8); Alkaline Phosphatase 81 U/L (38-126); Anion Gap 13.3 mEq/L (5-15); Aspartate Amino Transferase 25 U/L (14-36); Bilirubin,Total 0.7 mg/dl (0.2-1.3); Calcium 8.6 mg/dl (8.4-10.2); Carbon Dioxide 30 mmol/L (22.0-30.0); Globulin 3.2 g/dL (1.3-3.2); Glucose 131 mg/dl (74-100); Total Protein,Serum 7.0 g/dl (6.3-8.2)
--- OUTSIDE RECORDS SUMMARY | 2025-04-19 05:04 | XMS_ITS | Clinical Summary ---
Author Organization [facility] Address [address] [place] [address] Care Team Providers Care Aromatherapist Name Role Phone Cecil Temple MD Primary Care Provider [phone] Family History Medical History Relation Name Comments [...] of Treatment Not on file Care Teams Aromatherapist Relationship Specialty Start Date End Date Cecil Temple MD [address] [place] [address] PCP - General 09/27/20
--- NOTE | 2025-04-19 05:47 | P.HP_ITS ---
<Statement entered by Omero Sorenson MD - 04/24/25 15:52> Agree with plan of care as outlined by the RUG TOUCH UP PAINTER. History of Present Illness *Admission Date: 04/19/25 *Reason for visit:: Difficulty walking *History of present illness: This is a 70-year-old female who is known to our service line and has a past medical history significant for CABG x 4 vessels in 2020, hypertension, HFpEF, GERD, and hypothyroidism who is status post right total knee replacement and presents due to inability to walk. Due to the patient symptoms, she presented to the emergency room for evaluation. While in the emergency room, imaging of the right knee was consistent with postoperative changes. Patient still was voicing she could not take care of herself at home; as result, hospital medicine was consulted for further management. During my evaluation of the patient, patient states once she was discharged home she has been unable to care for herself. She reports that she has had an inability to get up and go back and forth from the couch and to the restroom. P rich did have an episode where she slid to the floor but did not hurt herself. She still complain of 10 out of 10 right knee pain. Patient was hypoxic while in the emergency room but she recovered with 2 L of oxygen by nasal cannula. Patient is currently denying any chest pain, lightheadedness, dizziness, fever, chills, rigors, nausea, vomiting, drainage at the incision site, diarrhea. Additional pertinent vitals obtained including white blood cell count, hemoglobin 0.5, hematocrit 36.9, neutrophils 81%, BUN of 18, GFR 55, and blood glucose 131. PFSH [facility] Disclaimer: The information contained in this section may have been updated after the patient was seen, as this information can be updated by other users. Medical History (Updated 04/19/25 @ 05:56 by López Correa APRN) Hypothyroid Onychomycosis Essential tremor Arthritis Encounter for pre-operative cardiovascular clearance Allergic rhinitis Chest pain Recurrent angina status post coronary artery bypass graft CAD (coronary artery disease) Abnormal cardiovascular stress test Family history of heart disease HLD (hyperlipidemia) Gastroesophageal reflux disease HTN (hypertension) Surgical History (Updated 04/17/25 @ 17:53 by Omero Sorenson MD) S/P cardiac catheterization Family History Other No significant family history Social History Smoking Status: Never smoker alcohol intake: never substance use type: denies use current occupational status: retired Travel in the last 8 weeks?: None household members: spouse housing: house Other Medical History Have you received the Flu Vaccine for this season: No Have you received the Pneumonia Vaccine: No Review of Systems Review of Systems Review of systems:: pertinent systems reviewed and negative unless documented below Constitutional Constitutional: Reports lethargy Eyes Eyes: Reports system reviewed and no additional complaints, except as documented ENT Ears, Nose, Mouth, and Throat: Reports system reviewed and no additional complaints, except as documented *Cardiovascular Cardiovascular: Reports system reviewed and no additional complaints, except as documented *Respiratory Respiratory: Reports system reviewed and no additional complaints, except as documented *Gastrointestinal Gastrointestinal: Reports system reviewed and no additional complaints, except as documented *Genitourinary Genitourinary: Reports system reviewed and no additional complaints, except as documented *Musculoskeletal Musculoskeletal: Reports joint swelling, Reports limited range of motion and Reports muscle weakness Integumentary/Breasts Skin/Breast: Reports system reviewed and no additional complaints, except as documented *Neurologic Neurologic: Reports system reviewed and no additional complaints, except as documented Psychiatric Psychiatric: Reports system reviewed and no additional complaints, except as documented Endocrine Endocrine: Reports system reviewed and no additional complaints, except as documented Hematologic/Lymphatic Hematologic/Lymphatic: Reports system reviewed and no additional complaints, except as documented Allergic/Immunologic Allergic/Immunologic: Reports system reviewed and no additional complaints, except as documented Meds Home Medications and Allergies Home Medications ?Medication ?Instructions ?Recorded ?Confirmed ?Type fluticasone propionate 50 1 spray intranasal BID #16 g kristen 09/08/24 04/17/25 Rx mcg/actuation nasal spray,suspension (Allergy Relief (fluticasone)) cholecalciferol (vitamin D3) 50 50 mcg PO DAILY 04/17/25 History mcg (2,000 unit) capsule terbinafine HCl 250 mg tablet 250 mg PO DAILY 12 weeks #84 tabs 01/09/25 04/17/25 Rx cetirizine 10 mg capsule (Zyrtec) 10 mg PO DAILY #30 c aps 03/13/25 04/17/25 Rx atorvastatin 80 mg tablet 80 mg PO HS 04/17/25 5 History famotidine 20 mg tablet 20 mg PO BID 04/17/25 History fluoxetine 20 mg tablet 20 mg PO 0900,1200 04/17/25 04/17/25 History furosemide 40 mg tablet 80 mg PO DAILY 04/17/25 1207/11 History isosorbide mononitrate 30 mg 30 mg PO DAILY 04/17/25 1 06/18/24 History tablet,extended release 24 hr levothyroxine 150 mcg tablet 150 mcg PO DAILY 04/17/25 04/17/25 History metoprolol succinate 50 mg 50 mg PO DAILY 04/17/2507/11 History tablet,extended release 24 hr spironolactone 25 mg tablet 25 mg PO DAILY 04/17/25 History aspirin 81 mg tablet 81 mg PO BID #60 tabs Rx oxycodone-acetaminophen 10 mg-325 1 tab PO Q4H PRN pos t op pain #42 04/18/25 Rx mg tablet tabs New Prescriptions to Start Prescriptions: Allergies Allergy/AdvReac Type Severity Reaction Status Date / Time No Known Allergies Allergy Verified 04/17/25 06:51 Exam Data for Last 24 hours Vital signs and Labs for Last 24 Hours: Temp Pulse Resp BP Pulse Ox O2 Del Method O2 Flow Rate 97.9 F 59 L 18 115/44 L 96 Nasal Cannula 2 04/19/25 04:23 04/19/25 05:15 04/19/25 04:23 04/19/25 05:01 04/19/25 05:15 04/19/25 05:15 04/19/25 05:15 Laboratory Results - last 24 hr 04/19/25 04:33: WBC 13.8 H, RBC 4.09 L, Hgb 11.5 L, Hct 36.9 L, MCV 90.2, MCH 28.1, MCHC 31.2 L, RDW 14.2, Plt Count 194, MPV 9.7, Neut % (Auto) 81.0 H, Lymph % (Auto) 7.0 L, [place] % (Auto) 11.1 H, Eos % (Auto) 0.0 L, Baso % (Auto) 0.4, Neut # (Auto) 11.2 H, Lymph # (Auto) 1.0, [place] # (Auto) 1.5 H, Eos # (Auto) 0.0, Baso # (Auto) 0.1, Sodium 138, Potassium 4.3, Chloride 99, Carbon Dioxide 30, Anion Gap 13.3, BUN 18 H, Creatinine 1.00, Estimated Creat Clear 41, Estimated GFR 55 L, Est GFR ( Amer) 67, Glucose 131 H, Calcium 8.6, Total Bilirubin 0.7, AST 25, ALT 16, Alkaline Phosphatase 81, Total Protein 7.0, Albumin 3.8, Globulin 3.2, Albumin/Globulin Ratio 1.2 I & O for Last 24 hours: Intake & Output 04/16/25 04/17/25 04/18/25 04/19/25 23:59 23:59 23:59 23:59 Weight 111.13 kg Constitutional Constitutional: no acute distress, morbidly obese and cooperative *Routine HEENT Exam Head: Present normocephalic and atraumatic Eye: Present EOMI, PERRL and normal accommodation ENT: Present mucous membranes moist *Routine Neck Exam Neck: Present supple, full ROM and trachea midline *Routine Respiratory Exam Respiratory: Present CTA bilaterally, diminished air movement, normal respiratory effort, able to speak in complete sentences and symmetric chest movement *Routine Cardiovascular Exam Cardiovascular: Present RRR, Normal S1 and Normal S2 *Routine Abdominal Exam Abdominal: Present soft, normoactive bowel sounds and obese *Routine Rectal Exam Rectal:: deferred *Routine Genitalia Exam Genitalia:: deferred *Routine Extremities Exam Extremities: Present edema, pulses intact, normal capillary refill and joint swelling Routine Back/Spine/Pelvis Exam Back/Spine: Present full ROM *Routine Skin Exam Skin: Present intact and warm Comments: Dressing to right extremity is clean dry and intact *Routine Neurological Exam Neurological: Present alert, oriented X3, CN II-XII intact and moving all extremities Routine Psychiatric Exam Psychiatric: Present normal affect, normal thought process, cooperative, good insight and good judgment H&P: Result Impressions 70-year-old female who is status post right total knee replacement performed by On the third of this month presents due to the inability to take care of herself and was found to be acutely hypoxic. Assessment and Plan *Assessment and plan (1) Status post total right knee replacement: Status: Acute Category: Surgical Code(s): Z96.651 - Presence of right artificial knee joint (2) Weakness: Status: Acute Category: Medical Code(s): R53.1 - Weakness (3) Acute hypoxic respiratory failure: Status: Acute Category: Medical Code(s): J96.01 - Acute respiratory failure with hypoxia (4) Leukocytosis: Status: Acute Qualifiers: Leukocytosis type: unspecified Qualified Code(s): D72.829 - Elevated w panfilo blood cell count, unspecified Category: Medical Code(s): D72.829 - Elevated white blood cell count, unspecified Plan Assessment: Status post total knee replacement: Postop day 1 Leukocytosis with left shift Functional decline/weakness - Left patient evaluated by physical therapy and Occupational Therapy - Consult case management - Patient may need inpatient rehab - Patient's leukocytosis is most likely due to recent surgery - Up to chair as tolerated - Will obtain procalcitonin in a.m. - Will monitor patient white blood cell count daily Acute hypoxic respiratory failure - Supplemental oxygen to maintain oxygen saturation greater than 94% Plan: Admit patient to the MedSur unit SMI spirometer every hour while awake Saline lock Cardiac diet CBC/BMP daily 40 mg Lovenox subcu daily for DVT prophylax 5 mg [place] p.o. every 4 hours for moderate pain 4 mg Zofran IV push every 8 hours pain nausea bowel Full code I will discussed this case with attending physician Dr. Sorenson
[2025-04-19 05:49] LABS: Hepatitis C Ab Qual. W/ RFX NEGATIVE (Negative)
--- NOTE | 2025-04-19 06:02 | PC.NURSE ---
Report called to Michelle CANO on [facility]
--- NOTE | 2025-04-19 06:11 | PC.NURSE ---
Patient arrived to floor via stretcher from ED at 063:09.
--- NOTE | 2025-04-19 08:38 | SW/DCPLANNER ---
Addendum entered by [facility] 04/19/25 15:25: Patient has been approved SNF level of care and will discharge to [facility] today. Addendum entered by [facility] 04/19/25 13:54: [facility] has started auth on this patient. Addendum entered by [facility] 04/19/25 12:21: [facility] is agreeable to accept patient and start auth pending beside evaluation today. CM will continue to follow up. Addendum entered by [facility] 04/19/25 11:05: PT/OT evaluated patient and recommended SNF level of care. Patient is agreeable to placement and prefers [facility]. Patient information has been faxed to [facility]. Patient is medically stable for discharge today. I will continue to follow up. Original Note: I spoke w/ this patient regarding plans once medically stable for discharge. Patient discharged home yesterday w/ [facility] after knee replacement surgery. Patient stated that she was on the BSC last night and slid off. Patient's was w/ her and assisting her at home. Per patient she is now requested a rolling walker at time of discharge (preferred rollator yesterday). Patient and I also discussed that PT/OT will re evaluate her this morning then I will follow up. CM will continue to follow up.
--- NOTE | 2025-04-19 10:09 | HMH.OTEV ---
OT Evaluation Rehab OT IP Evaluation Start: 04/19/25 05:41 Freq: ONCE Status: Active Protocol: Document 04/19/25 10:03 ANGELICA (Rec: 04/19/25 10:09 ANGELICA [id number]) Rehab OT IP Assessment Subjective History Per HPI: *History of present illness: This is a 70-year-old female who is known to our service line and has a past medical history significant for CABG x 4 vessels in 2019, hypertension, HFpEF, GERD, and hypothyroidism who is status post right total knee replacement and presents due to inability to walk. Due to the patient symptoms, she presented to the emergency room for evaluation. While in the emergency room, imaging of the right knee was consistent with postoperative changes. Patient still was voicing she could not take care of herself at home; as result, hospital medicine was consulted for further management. During my evaluation of the patient, patient states once she was discharged home she has been unable to care for herself. She reports that she has had an inability to get up and go back and forth from the couch and to the restroom. Patient did have an episode where she slid to the floor but did not hurt herself. She still complain of 10 out of 10 right knee pain. Patient was hypoxic while in the emergency room but she recovered with 2 L of oxygen by nasal cannula. Patient is currently denying any chest pain, lightheadedness, dizziness, fever, chills, rigors, nausea, vomiting, drainage at the incision site, diarrhea. Additional pertinent vitals obtained including white blood cell count, hemoglobin 0.5, hematocrit 36.9, neutrophils 81%, BUN of 18, GFR 55, and blood glucose 131. Subjective I am in so much pain. Pt supine in bed when therapy entered. Pt orient x3. Pt agreed to OT eval this AM. Pt reported they live with in two story home with bedroom upstairs. Pt reported they are currently living on first floor. Pt reported no steps to enter home. pt reported they are using a walker for FM. Pt reported they do not have a shower chair or grab bars, but do have bedside commode. pt reported PLOF before surgery was Ind in ADLs and IADLs and they still drive. At this time they do not drive. pt reported they have a RW but the seat broke. Pt agreed to sit on EOB. Pt was SBA for supine to EOB, however pt took 5 minutes to go from supine to EOB. Pt able to tolerate sitting at EOB for 3 minutes to report baseline to therapy. Pt then moved back to supine position with Mod A. Pt left supine in bed with call light and all other needs within reach. Objective Patient Orientation Person,Place,Birthday Right Upper WFL Extremity Gross ROM Left Upper Extremity WFL Gross ROM Bed Mobility bed mobility-scooting,bed mobility - supine/sit Assist Level Supervision/Stand by Decrease in Yes Endurance Rehab OT IP prob,goals,plan Problems Date of Evaluation: 04/19/25 OT IP Problems Bed Mobility,Transfers,Balance,Self care,Safety Rehab Potential Rehab Potential Good Equipment Needs Assistive Devices Rolling / Wheeled Walker Plan OT intervention Plan Bed Mobility,Transfers,Balance,Self care,Safety, Therapeutic Exercise OT Plan Frequency Daily Duration LOS Discharge Goals Bed Mobility Ability Standby Assistance Sit to Stand Chair Supervision/Stand by Transfer Ability Chair Transfer Supervision/Stand by Ability Chair Transfer Sit to/from Ambulatory Technique Chair Transfer Rolling Walker Assistive Devices Feeding Ability Assist with Tray Set Up Decrease in No Endurance Discharge Plan OT Discharge Plan At this time, pt presents below baseline in functional occupational performance and would benefit from skilled acute OT services and interventions at this time to address these deficits while admitted at [facility]. Once DC from [facility], pt could benefit from rehab to further address these deficits in occupational performance and improve safety. Eval Complexity Eval Charge Codes 12975 - Moderate Complexity PHYSICIAN CERTIFICATION: I certify the specified therapy services for Ghada England are required, authorized, and reviewed every 30 days.
--- NOTE | 2025-04-19 10:26 | HMH.PTEV ---
Physical Therapy Evaluation Rehab PT IP Evaluation Start: 04/19/25 05:41 Freq: ONCE Status: Active Protocol: Document 04/19/25 09:54 SHARI (Rec: 04/19/25 10:25 SHARI [id number]) Subjective/History History History Per H&P: This is a 70-year-old female who is known to our service line and has a past medical history significant for CABG x 4 vessels in 2020, hypertension, HFpEF, GERD, and hypothyroidism who is status post right total knee replacement and presents due to inability to walk. Due to the patient symptoms, she presented to the emergency room for evaluation. While in the emergency room, imaging of the right knee was consistent with postoperative changes. Patient still was voicing she could not take care of herself at home; as result, hospital medicine was consulted for further management. During my evaluation of the patient, patient states once she was discharged home she has been unable to care for herself. She reports that she has had an inability to get up and go back and forth from the couch and to the restroom. Patient did have an episode where she slid to the floor but did not hurt herself. She still complain of 10 out of 10 right knee pain. Patient was hypoxic while in the emergency room but she recovered with 2 L of oxygen by nasal cannula. Patient is currently denying any chest pain, lightheadedness, dizziness, fever, chills, rigors, nausea, vomiting, drainage at the incision site, diarrhea. Additional pertinent vitals obtained including white blood cell count, hemoglobin 0.5, hematocrit 36.9, neutrophils 81%, BUN of 18, GFR 55, and blood glucose 131. Subjective Subjective Pt reports she lives with her . Pt reports increased difficulty with ambulation tasks once she was at home. Pt reports her is around 24/7 but is limited in the amount of physical assistance he can provide. Pt owns a RW but was ambulating IND prior to her surgery without and AD. New diagnosis of No cancer in past 12 months? [facility] How much help from another person do you currently need... Turning from your None back to your side while in a flat bed without using bedrails? Moving from lying on A little back to sitting on the side of a flat bed without using bedrails? Moving to and from a A little bed to a chair ( including a wheelchair)? Standing up from a A little chair using your arms? (e.g., wheelchair, bedside chair) Walking in hospital A lot room? Climbing 3-5 steps A lot with a railing? Mobility Score 17 Mobility Level [facility] Mobility 5 Stand (1 or more minutes) Mobility Calculator Rehab PT IP Eval Objective Appearance Patient Behavior Appropriate,Cooperative Patient Orientation Person,Place Difficulty following mild instructions Speech Pattern Clear Ambulation Patient Able to No Ambulate Balance Ability to Arise Able, uses arms to help Sitting Balance Steady, safe Standing Balance Steady, wide stance Dynamic Sitting Good Balance Ability Dynamic Standing Fair Balance Ability Transfers Bed Transfer Ability Minimal x 1 (25% assist) Chair Transfer Minimal x 1 (25% assist) Ability Sit to Stand Bed Minimal x 1 (25% assist) Transfer Ability Rehab PT IP prob,goals,plan Problems Date of Evaluation: 04/19/25 PT IP Problems Bed Mobility,Transfers,Gait,Balance,Self care,Safety Rehab Potential Rehab Potential Good Equipment Needs Assistive Devices Rolling / Wheeled Walker Plan PT Intervention Plan Bed Mobility,Transfers,Gait,Balance,Self care,Safety, Therapeutic Exercise Other Intervention 1-2 times Plan PT Plan Frequency Daily Duration LOS Discharge Goals Bed Transfer Ability Independent Sit to Stand Chair Supervision/Stand by Transfer Ability Ambulation Assistive Rolling Walker Device Ambulation Distance 10 (feet) Discharge Plan PT Discharge Plan Initial physical therapy evaluation performed. Patient presents below baseline at this time in functional mobility, transfers, and strength. Per pt's recent admission, she was PWB. Pt not able to comply with these WBing orders at this time d/t weakness and impaired command following. Pt not safe to return home at this time d/t current level of functional mobility and limited physical assistance at home. PT recommending inpatient rehabilitation facility (IRF) placement upon d/c from [facility]. Pt would benefit from skilled PT while at [facility] to prevent further functional decline and maximize safety with mobility. Eval Complexity Eval Charge Codes 21347 - Moderate Complexity PHYSICIAN CERTIFICATION: I certify the specified therapy services for Ghada England are required, authorized, and reviewed every 30 days.
--- NOTE | 2025-04-19 15:02 | EXP.DC.SUM ---
General Admission date:: 04/19/25 HPI HPI HPI: This is a 70-year-old female who is known to our service line and has a past medical history significant for CABG x 4 vessels in 2019, hypertension, HFpEF, GERD, and hypothyroidism who is status post right total knee replacement and presents due to inability to walk. Due to the patient symptoms, she presented to the emergency room for evaluation. While in the emergency room, imaging of the right knee was consistent with postoperative changes. Patient still was voicing she could not take care of herself at home; as result, hospital medicine was consulted for further management. During my evaluation of the patient, patient states once she was discharged home she has been unable to care for herself. She reports that she has had an inability to get up and go back and forth from the couch and to the restroom. Patient did have an episode where she slid to the floor but did not hurt herself. She still complain of 10 out of 10 right knee pain. Patient was hypoxic while in the emergency room but she recovered with 2 L of oxygen by nasal cannula. Patient is currently denying any chest pain, lightheadedness, dizziness, fever, chills, rigors, nausea, vomiting, drainage at the incision site, diarrhea. Additional pertinent vitals obtained including white blood cell count, hemoglobin 0.5, hematocrit 36.9, neutrophils 81%, BUN of 18, GFR 55, and blood glucose 131. Hospital Course Hospital Course Hospital Course: Ghada England is a 70-year-old female with a medical history significant for CABG x 4 in 2019, hypertension, HFpEF, GERD, hypothyroidism who presented for inability to ambulate adequately. Patient recently had right total knee replacement and underwent a successful procedure on 04/17/2025. #History of right knee osteoarthritis #Right total knee replacement #Functional decline ? Successful outpatient right total knee arthroplasty on 04/17/2025 by orthopedic surgery. Patient tolerated procedure well. ? There is concern that patient might have had weakness from prescribed Percocet 10 mg for pain, as she did well with physical therapy during previous admission. Will switch to [place]. ? PT/OT recommended SNF, [facility] graciously except patient. Will be discharged in stable condition. ? Discharged with [place] 5 to 10 mg every 4-6 hours as needed for postop pain. ? DVT prophylaxis with aspirin 81 twice daily for 20 more days. #History of CABG x4 2020 #HFpEF ? Currently seems euvolemic. Continue Lasix, spironolactone. ? Continue aspirin, statin. #Hypertension ? Hold home Imdur given concomitant opioids for pain control, continue home Lasix and spironolactone. #GERD ? Continue home famotidine. #Hypothyroidism ? Continue home levothyroxine 50 mcg. TSH normal. Total time spent on discharge: 31 minutes on chart review, counseling, documentation, and direct care with patient. Exam Data for Last 24 hours Vital signs and Labs for Last 24 Hours: Temp Pulse Resp BP Pulse Ox O2 Del Method O2 Flow Rate 97.7 F 54 L 18 148/55 H 98 Room Air 2 04/19/25 07:34 04/19/25 07:34 04/19/25 07:34 04/19/25 07:34 04/19/25 07:34 04/19/25 13:00 04/19/25 08:00 Laboratory Results - last 24 hr 04/19/25 04:33: WBC 13.8 H, RBC 4.09 L, Hgb 11.5 L, Hct 36.9 L, MCV 90.2, MCH 28.1, MCHC 31.2 L, RDW 14.2, Plt Count 194, MPV 9.7, Neut % (Auto) 81.0 H, Lymph % (Auto) 7.0 L, Murray % (Auto) 11.1 H, Eos % (Auto) 0.0 L, Baso % (Auto) 0.4, Neut # (Auto) 11.2 H, Lymph # (Auto) 1.0, Murray # (Auto) 1.5 H, Eos # (Auto) 0.0, Baso # (Auto) 0.1, Sodium 138, Potassium 4.3, Chloride 99, Carbon Dioxide 30, Anion Gap 13.3, BUN 18 H, Creatinine 1.00, Estimated Creat Clear 41, Estimated GFR 55 L, Est GFR ( Amer) 67, Glucose 131 H, Calcium 8.6, Total Bilirubin 0.7, AST 25, ALT 16, Alkaline Phosphatase 81, Total Protein 7.0, Albumin 3.8, Globulin 3.2, Albumin/Globulin Ratio 1.2, HCV Ab HOWIE w/Rflx PCR Qn Negative, HIV Ag/Ab Combo Qual Negative Temp Pulse Resp BP Pulse Ox O2 Del Method O2 Flow Rate 97.6 F 53 L 16 148/65 H 91 L Room Air 6 04/17/25 12:00 04/17/25 13:00 04/17/25 13:00 04/17/25 13:00 04/17/25 13:00 04/17/25 13:00 04/17/25 11:40 I & O for Last 24 hours: Intake & Output 04/16/25 04/17/25 04/18/25 04/19/25 23:59 23:59 23:59 23:59 Intake Total 360 / 360 Output Total 0 / 0 Balance 360 / 360 Weight 117.163 kg Intake & Output 04/14/25 04/15/25 04/16/25 04/17/25 23:59 23:59 23:59 23:59 Intake Total 3260 / 3260 Balance 3260 / 3260 Weight 117.962 kg Constitutional Constitutional: no acute distress and obese *Routine HEENT Exam Head: Present normocephalic Eye: Present EOMI and PERRL ENT: Present mucous membranes moist *Routine Neck Exam Neck: Present supple; Absent lymphadenopathy *Routine Respiratory Exam Respiratory: Present CTA bilaterally *Routine Cardiovascular Exam Cardiovascular: Present RRR *Routine Abdominal Exam Abdominal: Present soft and normoactive bowel sounds; Absent tenderness *Routine Extremities Exam Extremities: Absent cyanosis, clubbing or edema Comments: Right knee wrapped and dressed. Neurovascularly intact. *Routine Skin Exam Skin: Present warm; Absent rash *Routine Neurological Exam Neurological: Present alert and oriented X3 Results Data Completed and Pending Labs on day of discharge: Labs from last 24 hours 04/19/25 04:33 WBC 13.8 H RBC 4.09 L Hgb 11.5 L Hct 36.9 L MCV 90.2 MCH 28.1 MCHC 31.2 L RDW 14.2 Plt Count 194 MPV 9.7 Neut % (Auto) 81.0 H Lymph % (Auto) 7.0 L Murray % (Auto) 11.1 H Eos % (Auto) 0.0 L Baso % (Auto) 0.4 Neut # (Auto) 11.2 H Lymph # (Auto) 1.0 Murray # (Auto) 1.5 H Eos # (Auto) 0.0 Baso # (Auto) 0.1 Sodium 138 Potassium 4.3 Chloride 99 Carbon Dioxide 30 Anion Gap 13.3 BUN 18 H Creatinine 1.00 Estimated Creat Clear 41 Estimated GFR 55 L Est GFR ( Amer) 67 Glucose 131 H Calcium 8.6 Total Bilirubin 0.7 AST 25 ALT 16 Alkaline Phosphatase 81 Total Protein 7.0 Albumin 3.8 Globulin 3.2 Albumin/Globulin Ratio 1.2 HCV Ab HOWIE w/Rflx PCR Qn Negative HIV Ag/Ab Combo Qual Negative DS: Diagnosis Discharge Diagnosis (1) Status post total right knee replacement: Status: Acute Code(s): Z96.651 - Presence of right artificial knee joint (2) Weakness: Status: Acute Code(s): R53.1 - Weakness (3) Acute hypoxic respiratory failure: Status: Acute Code(s): J96.01 - Acute respiratory failure with hypoxia (4) Leukocytosis: Status: Acute Code(s): D72.829 - Elevated white blood cell count, unspecified Qualifiers: Leukocytosis type: unspecified Qualified Code(s): D72.829 - Elevated white blood cell count, unspecified Meds Home Medications and Allergies Home Medications ?Medication ?Instructions ?Recorded ?Confirmed ?Type fluticasone propionate 50 1 spray intranasal BID #16 grams 09/08/24 04/19/25 Rx mcg/actuation nasal spray,suspension (Allergy Relief (fluticasone)) cholecalciferol (vitamin D3) 50 50 mcg PO DAILY 09/18/24 04/19/25 History mcg (2,000 unit) capsule cetirizine 10 mg capsule (Zyrtec) 10 mg PO DAILY #30 caps 03/13/25 04/19/25 Rx atorvastatin 80 mg tablet 80 mg PO HS 04/17/25 04/19/25 History famotidine 20 mg tablet 20 mg PO BID 04/17/25 04/19/25 History fluoxetine 20 mg tablet 20 mg PO 0900,1200 04/17/25 04/19/25 History furosemide 40 mg tablet 80 mg PO DAILY 04/17/25 04/19/25 History isosorbide mononitrate 30 mg 30 mg PO DAILY 04/17/25 04/19/25 History tablet,extended release 24 hr levothyroxine 150 mcg tablet 150 mcg PO DAILY 04/17/25 04/19/25 History metoprolol succinate 50 mg 50 mg PO DAILY 04/17/25 04/19/25 History tablet,extended release 24 hr spironolactone 25 mg tablet 25 mg PO DAILY 04/17/25 04/19/25 History aspirin 81 mg tablet 81 mg PO BID #60 tabs 04/18/25 04/19/25 Rx hydrocodone 5 mg-acetaminophen 325 1 - 2 tab PO Q4HP PRN Mild To 04/19/25 Rx mg tablet Moderate Pain (1-6) #30 tabs New Prescriptions to Start Prescriptions: hydrocodone-acetaminophen Omero Sorenson Allergies Allergy/AdvReac Type Severity Reaction Status Date / Time No Known Allergies Allergy Verified 04/17/25 06:51 Discharge Plan Disposition Patient Disposition: [facility] Condition: Fair Discharge Order Discharge Orders: Discharge Order (Routine); Ordered 04/19/25 Ordered By: Oemro Sorenson Follow up Plan Follow up with: Anel Razo PA [Physician Certifed Refrigeration Operator, Orthopedics] - 04/30/25 Prescriptions/Medication Reconciliation: New hydrocodone-acetaminophen 5-325 mg Tablet 1 - 2 tab PO Q4HP PRN (Reason: Mild To Moderate Pain (1-6)) Qty: 30 0RF Continued cholecalciferol (vitamin D3) 50 mcg (2,000 unit) capsule 50 mcg PO DAILY fluticasone propionate [Allergy Relief (fluticasone)] 50 mcg/actuation spray,suspension 1 spray intranasal BID Qty: 16 2RF Rx Instructions: administer into each nostril 2x/day Zyrtec 10 mg capsule 10 mg PO DAILY Qty: 30 2RF furosemide 40 mg tablet 80 mg PO DAILY atorvastatin 80 mg tablet 80 mg PO HS metoprolol succinate 50 mg tablet extended release 24 hr 50 mg PO DAILY isosorbide mononitrate 30 mg tablet extended release 24 hr 30 mg PO DAILY spironolactone 25 mg tablet 25 mg PO DAILY famotidine 20 mg tablet 20 mg PO BID fluoxetine 20 mg tablet 20 mg PO 0900,1200 levothyroxine 150 mcg tablet 150 mcg PO DAILY aspirin 81 mg tablet 81 mg PO BID Qty: 60 0RF Discontinued oxycodone-acetaminophen 10-325 mg tablet 1 tab PO Q4H PRN (Reason: post op pain) Qty: 42 0RF Problem Reconciliation Problems Reviewed?: Yes Patient Discharge Instructions Patient Instructions: DI for Knee Pain Print Language: Hebrew Providers Primary Care Provider: Chito Ramírez Admit Provider: Omero Sorenson Attending Provider: Omero Sorenson
[2025-04-19 15:42] LABS: Free T4 (Free Thyroxine) 2.44 ng/dl (0.78-2.19)
--- NOTE | 2025-04-19 15:54 | PC.NURSE ---
Family notified that pt will need a ride to facility [facility]. Report called to Clotilde at [facility].
[2025-04-19 15:56] LABS: Thyroid Stimulating Hormone 0.46 uIU/mL (0.465-4.68)
[2025-04-19] MEDS: FAMOTIDINE 20MG TABLET 20 MG PO (15:56)
[2025-04-19] MEDS: HYDROCODONE/APAP 5/325 MG TABLET 1 TAB PO (15:56)
[2025-04-19] MEDS: FUROSEMIDE 40 MG TABLET 80 MG PO (15:57)
[2025-04-19] MEDS: SPIRONOLACTONE 25MG TABLET 25 MG PO (15:57)
[2025-04-19] MEDS: ASPIRIN EC 81MG TABLET 81 MG PO (15:57)
[2025-04-19] MEDS: FLUOXETINE 20MG CAPSULE 20 MG PO (15:57)
[2025-04-19] MEDS: LEVOTHYROXINE 150MCG (0.15MG)TAB 150 MCG PO (15:57)
[2025-04-19 16:15] LABS: Vitamin B12 228 pg/mL (239-931)
== END 2025-04-19 18:11 ==
LOC: ER 05:13 → 2ND 05:29
PROVIDERS: Admitting Provider Student in an Organized Health Care Education/Training Program; Emergency Provider Emergency Medicine; PCP Family Medicine; Visit Provider Student in an Organized Health Care Education/Training Program
DX: R53.1 Weakness (principal); J96.01 Acute respiratory failure with hypoxia; D72.829 Elevated white blood cell count, unspecified; I25.10 Atherosclerotic heart disease of native coronary artery without angina pectoris; Z96.651 Presence of right artificial knee joint; Z82.49 Family history of ischemic heart disease and other diseases of the circulatory system; E78.5 Hyperlipidemia, unspecified; K21.9 Gastro-esophageal reflux disease without esophagitis; E03.9 Hypothyroidism, unspecified; Z95.5 Presence of coronary angioplasty implant and graft; I50.30 Unspecified diastolic (congestive) heart failure; I11.0 Hypertensive heart disease with heart failure; Z79.890 Hormone replacement therapy; Z79.899 Other long term (current) drug therapy; Z79.82 Long term (current) use of aspirin
CPT/HCPCS: 80053; 82607; 84439; 84443; 85025; 86803; 87389; 97162; 97166; 99285; G0378; J1650

== ENCOUNTER 2025-05-03 12:48 | Outpatient (CLI) | payer MEDICARE, SELFPAY ==
--- NOTE | 2025-05-03 12:51 | XR_ITS ---
FINAL REPORT TECHNIQUE: 3 views right knee CLINICAL HISTORY: right knee post op dec 2 knee replacement COMPARISON: 04/17/2025 FINDINGS: RIGHT KNEE: 3 images of the right knee were obtained. The patient has undergone a right knee arthroplasty, and reece are present in the anterior soft tissues of the right knee. There are small osteophytes on the undersurface of the patella. There is no evidence of fracture or dislocation. The joint spaces are intact. There is no soft tissue abnormality identified. IMPRESSION: Postoperative changes of right knee arthroplasty, with reece remaining present in the anterior soft tissues of the right knee. Reviewed, Interpreted and Dictated by Monty Song MD Transcribed by Blanquita Brown Authenticated and [facility]
--- OUTSIDE RECORDS SUMMARY | 2025-05-03 12:57 | XMS_ITS | Clinical Summary ---
Author Organization [facility] Address [address] [place] [address] Care Team Providers Care Service Desk Agent Name Role Phone Cecil Temple MD Primary Care Provider [phone] Family History Medical History Relation Name Comments [...] of Treatment Not on file Care Teams Service Desk Agent Relationship Specialty Start Date End Date Cecil Temple MD [address] [place] [address] PCP - General 09/27/20
== END 2025-05-03 23:59 | disposition home or self-care (01) ==
LOC: RAD 12:49
PROVIDERS: PCP Family Medicine; Visit Provider Physician Assistant Surgical
DX: Z47.1 Aftercare following joint replacement surgery (principal); Z96.651 Presence of right artificial knee joint
CPT/HCPCS: 73562